=== PATIENT | female | born 1995 | race Caucasian/White ===

== ENCOUNTER → 2016-08-12 | Outpatient (CLI) | payer MEDICAID | LOC: MW.CHOBGYN 14:56 | PROVIDERS: ATTEND Advanced Practice Midwife | DX: Z34.90 Encounter for supervision of normal pregnancy, unspecified, unspecified trimester (principal) | CPT/HCPCS: 36415; 85025 ==

== ENCOUNTER 2016-08-14 17:29 | Outpatient (CLI) | payer MEDICAID ==
--- NOTE | 2016-08-17 13:25 | US ---
EXAM DATE: 08/14/16 PATIENT'S AGE: 21 Patient: MARK BALTAZAR Facility: [facility], [place] Site . Site : 1995 Study: US OB Pelvis [id number]/17/2017 9:00:54 PM Ordering Physician: Kenneth Brown Final Report: HISTORY: Leaking fluid. Comparison: 07/17/2016. Findings: Single living intrauterine fetus in breech position. heart rate 156 beats per minute. KELSEY within normal 14.5 cm. The placenta is posterior. No evidence for placenta previa. The cervix measures 4 cm in length and appears closed. Ultrasound gestational age of 24 weeks 1 day and EDC of 12/03/2016. Appropriate interval growth. This correlates with clinical dating. Impression: Single living intrauterine fetus in breech position with ultrasound gestational age of 24 weeks 1 day and EDC 12/03/2016. This correlates with prior dating. Amniotic fluid volume within normal. Dictated by Josie Perla MD @ Aug 17 2016 8:14AM (Electronic Signature) Report Signed by Proxy and Original Signed Document filed in the Medical Record. MTDD
== END 2016-08-14 21:06 | disposition home or self-care (01) ==
LOC: MW.OBCHECK 17:29 → MW.OB 17:31 → MW.OBCHECK 21:06
PROVIDERS: ATTEND Obstetrics & Gynecology
DX: O42.912 Preterm premature rupture of membranes, unspecified as to length of time between rupture and onset of labor, second trimester (principal); Z3A.23 23 weeks gestation of pregnancy
CPT/HCPCS: 59025; 76805; 76805-26; 81003; 84112

== ENCOUNTER 2016-08-20 14:19 | Emergency (ER) | payer MEDICAID ==
[2016-08-20] MEDS ORDERED: Sodium Chloride 0.9% 1,000 ML IV ONE (14:50)
--- NOTE | 2016-08-20 15:18 | EDM.PDOC ---
ED HPI GENERAL MEDICAL PROBLEM - General Chief Complaint: General Stated Complaint: 25 WEEKS /PASSED OUT TWICE Time Seen by Provider: 08/20/16 14:40 Source of Information: Reports: Patient History Limitations: Reports: No limitations - History of Present Illness INITIAL COMMENTS - FREE TEXT/NARRATIVE: HISTORY AND PHYSICAL: History of present illness: Patient is a 21-year-old female who presents to the emergency department today after very short syncopal episode today. She states this occurred last week and then again today. The episode happened while she was sitting at work after she just and entering. She started feeling really poorly with nausea and lightheadedness. She laid down on the floor and was told that she passed out for a couple of seconds. There is no fall associated with this. She states she laid there for 5-10 minutes and tried to get back but felt extremely nauseated and lightheaded again. This cycle went on several times. She presents today for evaluation. She is 25 weeks . . She has not had any trauma. No fevers no chills. No abdominal pain no vaginal discharge. She denies vaginal bleeding. No pain with urination. Otherwise healthy. Review of systems: As per history of present illness and below otherwise all systems reviewed and negative. Past medical history: As per history of present illness and as reviewed below otherwise noncontributory. Surgical history: As per history of present illness and as reviewed below otherwise noncontributory. Social history: No reported history of drug or alcohol abuse. Family history: As per history of present illness and as reviewed below otherwise noncontributory. Physical exam: General: Comfortable. Non toxic. Vitals reviewed and stable. HEENT: Atraumatic, normocephalic, pupils reactive, moist mucous membranes. Lungs: Clear to auscultation, breath sounds equal bilaterally, chest nontender. Heart: S1S2, regular, negative for clicks, rubs, or JVD. Abdomen: Soft, gravid fundus palpated. No significant tenderness. Pelvis: Stable nontender. Genitourinary: Deferred. Rectal: Deferred. Extremities: Atraumatic, negative for cords or calf pain. Neurovascular unremarkable. Neuro: Awake, alert, oriented. Cranial nerves II through XII unremarkable. Cerebellum unremarkable. Motor and sensory unremarkable throughout. Exam nonfocal. Diagnostics: cbc, cmp, ua, ekg, orthostatic vital signs Therapeutics: IV fluids (patient refused) Impression: Syncope Plan: I spoke with Dr. Cooper about the findings here and he does not feel any additional management needed to occur here. He mentioned to just call the office tomorrow and arrange a followup appointment. The patient says that she knew this was going to happen when she came in but she only came because her employer made her. She feels fine now. We discussed some home management and think he can get it maybe try and prevent her symptoms and she'll return if anything worsens. She is comfortable with this and did not have any additional questions or concerns Definitive disposition and diagnosis as appropriate pending reevaluation and review of above. - Related Data Allergies Allergy/AdvReac Type Severity Reaction Status Date / Time amoxicillin Allergy Hives Verified 08/14/16 17:56 Home Meds: Home Meds Vits #93/Iron Fum/FA [ Formula Tablet] 1 each PO DAILY [History] Social & Family History - Tobacco Use Smoking Status *Q: Never Smoker Second Hand Smoke Exposure: No - Caffeine Use Caffeine Use: Reports: Coffee - Recreational Drug Use Recreational Drug Use: No ED ROS GENERAL - Review of Systems Review Of Systems: ROS reveals no pertinent complaints other than HPI. ED EXAM, GENERAL - Physical Exam Exam: See Below (See history of present illness) Course - Vital Signs Last Recorded V/S: Last Vital Signs Temp 36.3 C 08/20/16 14:32 Pulse 87 08/20/16 14:32 Resp 18 08/20/16 14:32 BP 110/68 08/20/16 14:32 Pulse Ox 99 08/20/16 14:32 Orthostatic Blood Pressure [] 108/76 Orthostatic Blood Pressure [] 103/68 Orthostatic Blood Pressure [] 110/70 - Orders/Labs/Meds Orders: Active Orders 24 hr Category Date Time Status EKG 12 Lead [EKG Documentation Completion] [RC] STAT Care 08/20/16 14:26 Active Orthostatic Vital Signs [RC] ASDIRECTED Care 08/20/16 14:51 Active UA W/MICROSCOPIC [URIN] Stat Lab 08/20/16 16:02 Received Labs: Laboratory Tests 08/20/16 08/20/16 08/20/16 Range/Units 14:38 15:00 15:00 WBC 11.28 H (4.0-11.0) K/uL RBC 3.53 L (4.30-5.90) M/uL Hgb 10.4 L (12.0-16.0) g/dL Hct 31.5 L (36.0-46.0) % MCV 89.2 (80.0-98.0) fL MCH 29.5 (27.0-32.0) pg MCHC 33.0 (31.0-37.0) g/dL RDW Std Deviation 44.5 (28.0-62.0) fl RDW Coeff of Cherie 14 (11.0-15.0) % Plt Count 247 (150-400) K/uL MPV 9.50 (7.40-12.00) fL Neut % (Auto) 81.5 H (48.0-80.0) % Lymph % (Auto) 10.4 L (16.0-40.0) % [place] % (Auto) 6.3 (0.0-15.0) % Eos % (Auto) 1.6 (0.0-7.0) % Baso % (Auto) 0.2 (0.0-1.5) % Neut # (Auto) 9.2 H (1.4-5.7) K/uL Lymph # (Auto) 1.2 (0.6-2.4) K/uL [place] # (Auto) 0.7 (0.0-0.8) K/uL Eos # (Auto) 0.2 (0.0-0.7) K/uL Baso # (Auto) 0.0 (0.0-0.1) K/uL Nucleated RBC % 0.0 /100WBC Nucleated RBCs # 0 K/uL Sodium 136 (136-146) mmol/L Potassium 4.0 (3.5-5.1) mmol/L Chloride 107 (98-110) mmol/L Carbon Dioxide 22 (21-31) mmol/L BUN 6 (6.0-23.0) mg/dL Creatinine 0.7 (0.6-1.5) mg/dL Est Cr Clr Drug Dosing TNP Estimated GFR (MDRD) > 60.0 ml/min Glucose 119 H (60-110) mg/dL POC Glucose 113 H (60-110) mg/dL Calcium 8.8 (8.8-10.8) mg/dL Total Bilirubin 0.3 (0.1-1.5) mg/dL AST 13 (5-40) IU/L ALT 10 (8-54) IU/L Alkaline Phosphatase 63 (40-150) Total Protein 6.3 (6.0-8.0) g/dL Albumin 3.3 L (3.5-5.0) g/dL Globulin 3.0 (2.0-3.5) g/dL Albumin/Globulin Ratio 1.1 L (1.3-2.8) Meds: Medications Discontinued Medications Generic Name Dose Route Start Last Admin Trade Name Freq PRN Reason Stop Dose Admin Sodium Chloride 1,000 mls @ 999 mls/hr 08/20/16 14:50 Normal Saline IV 08/20/16 15:50 STAT ONE Departure - Departure Time of Disposition: 16:26 Disposition: Home, Self-Care 01 Condition: good Clinical Impression: Second trimester Syncope Qualifiers: Syncope type: unspecified Qualified Code(s): R55 - Syncope and collapse Referrals: PCP,None [Primary Care Provider] - Forms: ED Department Discharge Additional Instructions: The following information is given to patients seen in the emergency department who are being discharged to home. This information is to outline your options for follow-up care. We provide all patients seen in our emergency department with a follow-up referral. The need for follow-up, as well as the timing and circumstances, are variable depending upon the specifics of your emergency department visit. If you don't have a primary care physician on staff, we will provide you with a referral. We always advise you to contact your personal physician following an emergency department visit to inform them of the circumstance of the visit and for follow-up with them and/or the need for any referrals to a consulting specialist. The emergency department will also refer you to a specialist when appropriate. This referral assures that you have the opportunity for follow-up care with a specialist. All of these measure are taken in an effort to provide you with optimal care, which includes your follow-up. Under all circumstances we always encourage you to contact your private physician who remains a resource for coordinating your care. When calling for follow-up care, please make the office aware that this follow-up is from your recent emergency room visit. If for any reason you are refused follow-up, please contact the [facility] Emergency Department at and asked to speak to the emergency department charge nurse. [facility] - [facility] [address] [place] [id number] - My Orders Last 24 Hours: My Active Orders 08/20/16 14:51 Orthostatic Vital Signs [RC] ASDIRECTED 08/20/16 16:02 UA W/MICROSCOPIC [URIN] Stat - Assessment/Plan Last 24 Hours: My Active Orders 08/20/16 14:51 Orthostatic Vital Signs [RC] ASDIRECTED 08/20/16 16:02 UA W/MICROSCOPIC [URIN] Stat
[2016-08-20 15:29] LABS: CHLORIDE,CL 107 mmol/L (98-110); SODIUM,NA 136 mmol/L (136-146)
[2016-08-20 16:50] VITALS: BP 108/78
== END 2016-08-20 16:49 | disposition home or self-care (01) ==
LOC: MW.ED 14:19
DX: O99.89 Other specified diseases and conditions complicating pregnancy, childbirth and the puerperium (principal); R55 Syncope and collapse; Z3A.25 25 weeks gestation of pregnancy; Z88.1 Allergy status to other antibiotic agents
CPT/HCPCS: 36415; 80053; 81001; 82962; 85025; 93005; 99284-25; 99285

== ENCOUNTER 2016-11-24 18:23 | Inpatient (IN) | payer OTHER, MEDICAID ==
[2016-11-24] MEDS ORDERED: Carboprost Tromethamine 250 MCG/1 ML Amp IM PRN (23:24)
[2016-11-24] MEDS ORDERED: Sodium Chloride 0.9% 2.5 ML Syringe FLUSH PRN (23:24)
[2016-11-24] MEDS ORDERED: Lidocaine 1% 50 ML MDV INJECT PRN (23:24)
[2016-11-24] MEDS ORDERED: Nalbuphine 10 MG/1 ML Vial IVPUSH PRN (23:24)
[2016-11-24] MEDS ORDERED: Water For Irrigation,Sterile 1,000 ML Container IRR PRN (23:24)
[2016-11-24] MEDS ORDERED: Terbutaline 1 MG/ML SDV SUBCUT PRN (23:24)
[2016-11-24] MEDS ORDERED: Methylergonovine 0.2 MG/1 ML Amp IM PRN (23:24)
[2016-11-24] MEDS ORDERED: Misoprostol 200 MCG Tab PO PRN (23:24)
[2016-11-24] MEDS ORDERED: Sodium Chloride 0.9% 10 ML Syringe FLUSH PRN (23:24)
[2016-11-24] MEDS ORDERED: Misoprostol 25 MCG (1/4 of 100 MCG) Tab PO SCH (23:30)
[2016-11-24] MEDS ORDERED: Oxytocin/Lactated Ringers 30 UNIT/500 ML BAG IV SCH (23:30)
[2016-11-24] MEDS ORDERED: Misoprostol 25 MCG (1/4 of 100 MCG) Tab VAG SCH (23:30)
[2016-11-25] MEDS: Misoprostol 25 MCG (1/4 of 100 MCG) Tab VAG PRN ×2 (04:28→08:40)
[2016-11-25] MEDS: Misoprostol 25 MCG (1/4 of 100 MCG) Tab PO PRN ×2 (04:28→08:46)
--- NOTE | 2016-11-25 09:10 | PCM.LDHP ---
L&D History of Present Illness - General Date of Service: 11/25/16 Admit Problem/Dx: Patient Status Order with Admit Dx/Problem 11/24/16 23:24 Patient Status [ADT] Routine Admission Diagnosis/Problem Admission Diagnosis/Problem Source of Information: Patient History Limitations: Reports: No Limitations - History of Present Illness Improves with: Reports: None Worsens with: Reports: None Associated Symptoms: Reports: N - Related Data Allergies/Adverse Reactions: Allergies Allergy/AdvReac Type Severity Reaction Status Date / Time amoxicillin Allergy Hives Verified 08/14/16 17:56 Home Medications: Home Meds Vits #93/Iron Fum/FA [ Formula Tablet] 1 each PO DAILY [History] Past Medical History [employer] History: Reports: Social & Family History - Family History Family Medical History: Noncontributory - Tobacco Use Smoking Status *Q: Never Smoker Second Hand Smoke Exposure: No - Caffeine Use Caffeine Use: Reports: Coffee - Recreational Drug Use Recreational Drug Use: No H&P Review of Systems - Review of Systems: Review Of Systems: See Below General: Reports: No Symptoms HEENT: Reports: No Symptoms Pulmonary: Reports: No Symptoms Cardiovascular: Reports: No Symptoms Gastrointestinal: Reports: No Symptoms Genitourinary: Reports: No Symptoms Musculoskeletal: Reports: No Symptoms Skin: Reports: No Symptoms Psychiatric: Reports: No Symptoms Neurological: Reports: No Symptoms Hematologic/Lymphatic: Reports: No Symptoms Immunologic: Reports: No Symptoms L&D Exam - Exam Exam: See Below - Vital Signs Weight: 68.946 kg - OB Specific Fundal Height In cm: 37 Contraction Intensity: Mild Movement: Active Heart Tones: Present - Javier Score Javier Score Cervix Position: Midposition Javier Score Consistency: Medium Javier Score Effacement: 51-70% Javier Score Dilation: Closed Javier Score Infant's Station: -2 Javier Score Total: 5 - Patient Data Lab Results Last 24 hrs: Laboratory Results - last 24 hr 11/24/16 11/24/16 Range/Units 23:50 23:50 WBC 8.52 (4.0-11.0) K/uL RBC 4.08 L (4.30-5.90) M/uL Hgb 11.0 L (12.0-16.0) g/dL Hct 34.2 L (36.0-46.0) % MCV 83.8 (80.0-98.0) fL MCH 27.0 (27.0-32.0) pg MCHC 32.2 (31.0-37.0) g/dL RDW Std Deviation 40.1 (28.0-62.0) fl RDW Coeff of Cherie 13 (11.0-15.0) % Plt Count 278 (150-400) K/uL MPV 9.90 (7.40-12.00) fL Nucleated RBC % 0.0 /100WBC Nucleated RBCs # 0 K/uL Blood Type O POSITIVE Antibody Screen NEGATIVE Result Diagrams: 11/24/16 23:50 Problem List Initiated/Reviewed/Updated: Yes Orders Last 24hrs: Active Orders 24 hr Category Date Time Status Patient Status [ADT] Routine ADT 11/24/16 23:24 Active Bedrest Bathroom Privileges [RC] ASDIRECTED Care 11/24/16 23:24 Active Communication Order [RC] ASDIRECTED Care 11/24/16 23:24 Active Communication Order [RC] ASDIRECTED Care 11/24/16 23:24 Active Communication Order [RC] ASDIRECTED Care 11/24/16 23:24 Active Heart Tones [RC] CONTINUOUS Care 11/24/16 23:24 Active Non Stress Test [RC] PER UNIT ROUTINE Care 11/24/16 23:24 Active May Shower [RC] ASDIRECTED Care 11/24/16 23:24 Active Notify Provider [RC] PRN Care 11/24/16 23:24 Active Notify Provider [RC] PRN Care 11/24/16 23:24 Active Notify Provider [RC] STAT Care 11/24/16 23:24 Active Oxygen Therapy [RC] ASDIRECTED Care 11/24/16 23:24 Active Up ad Jenna [RC] ASDIRECTED Care 11/24/16 23:24 Active Vaginal Exam [RC] PRN Care 11/24/16 23:24 Active Vaginal Exam [RC] PRN Care 11/24/16 23:24 Active Vital Signs [RC] PER UNIT ROUTINE Care 11/24/16 23:24 Active Vital Signs [RC] PER UNIT ROUTINE Care 11/24/16 23:24 Active Carboprost Tromethamine [Hemabate DS] Med 11/24/16 23:24 Active 250 mcg IM ASDIRECTED PRN Lactated Ringers [Ringers, Lactated] 1,000 ml Med 11/24/16 23:30 Active IV ASDIRECTED Lidocaine 1% [Xylocaine 1%] Med 11/24/16 23:24 Active 50 ml INJECT .ONCE PRN Methylergonovine [Methergine] Med 11/24/16 23:24 Active 0.2 mg IM ASDIRECTED PRN Misoprostol [Cytotec] Med 11/24/16 23:24 Active 200 mcg PO .ONCE PRN Misoprostol [Cytotec] Med 11/24/16 23:30 Active 25 mcg PO .ONCE Misoprostol [Cytotec] [facility] 11/24/16 23:24 Active 25 mcg PO Q4H PRN Misoprostol [Cytotec] [facility] 11/24/16 23:30 Active 25 mcg VAG .ONCE Misoprostol [Cytotec] Med 11/24/16 23:24 Active 25 mcg VAG Q4H PRN Oxytocin/Lactated Ringers [Pitocin in LR 30 Units/500 Med 11/24/16 23:30 Active ML] 30 unit in 500 ml IV TITRATE Sodium Chloride 0.9% [Saline Flush] Med 11/24/16 23:24 Active 10 ml FLUSH ASDIRECTED PRN Sodium Chloride 0.9% [Saline Flush] [facility] 11/24/16 23:24 Active 2.5 ml FLUSH ASDIRECTED PRN Terbutaline [Brethine] Med 11/24/16 23:24 Active 0.25 mg SUBCUT ASDIRECTED PRN Water For Irrigation,Sterile [Sterile Water for Med 11/24/16 23:24 Active Irrigation] 1,000 ml IRR ASDIRECTED PRN Scalp Electrode [WOMSER] Per Unit Routine Oth 11/24/16 23:24 Ordered Peripheral IV Insertion Adult [OM.PC] Routine Oth 11/24/16 23:24 Ordered Resuscitation Status Routine Resus Stat 11/24/16 23:24 Ordered Medication Orders Carboprost Tromethamine (Hemabate Ds) 250 mcg IM ASDIRECTED PRN PRN Reason: Post Hemorrhage Lactated Ringer's (Ringers, Lactated) 1,000 mls @ 150 mls/hr IV ASDIRECTED JASSI Oxytocin/Lactated Ringer's (Pitocin In Lr 30 Units/500 Ml) 30 unit in 500 mls @ 2 mls/hr IV TITRATE JASSI; 2 MUNITS/MIN PRN Reason: Protocol Stop: 11/25/16 23:29 Lidocaine HCl (Xylocaine 1%) 50 ml INJECT .ONCE PRN PRN Reason: Laceration repair Methylergonovine Maleate (Methergine) 0.2 mg IM ASDIRECTED PRN PRN Reason: Post Hemorrhage Misoprostol (Cytotec) 200 mcg PO .ONCE PRN PRN Reason: Post Hemorrhage Misoprostol (Cytotec) 25 mcg VAG .ONCE JASSI Last Admin: 11/25/16 00:01 Dose: 25 mcg Misoprostol (Cytotec) 25 mcg VAG Q4H PRN PRN Reason: Cervical Ripening Stop: 11/26/16 03:25 Last Admin: 11/25/16 08:40 Dose: 25 mcg Admin: 11/25/16 04:28 Dose: 25 mcg Misoprostol (Cytotec) 25 mcg PO .ONCE JASSI Last Admin: 11/25/16 00:01 Dose: 25 mcg Misoprostol (Cytotec) 25 mcg PO Q4H PRN PRN Reason: Cervical Ripening Stop: 11/26/16 03:25 Last Admin: 11/25/16 08:46 Dose: 25 mcg Admin: 11/25/16 04:28 Dose: 25 mcg Sodium Chloride (Saline Flush) 10 ml FLUSH ASDIRECTED PRN PRN Reason: Keep Vein Open Sodium Chloride (Saline Flush) 2.5 ml FLUSH ASDIRECTED PRN PRN Reason: Keep Vein Open Sterile Water (Sterile Water For Irrigation) 1,000 ml IRR ASDIRECTED PRN PRN Reason: delivery Terbutaline Sulfate (Brethine) 0.25 mg SUBCUT ASDIRECTED PRN PRN Reason: Tacysystole Assessment/Plan Comment:: Term admited for social indction with Cytotec and pitocine.
[2016-11-25] MEDS: Nalbuphine 10 MG/1 ML Vial IVPUSH PRN ×2 (12:37→14:49)
[2016-11-25] MEDS: Lactated Ringers 1,000 ML IV SCH ×2 (12:41→14:56)
[2016-11-25] MEDS ORDERED: fentaNYL 100 MCG/2 ML SDV ONE (16:17)
[2016-11-25] MEDS ORDERED: Ropivacaine 0.2% 2 MG/ML 20 ML SDV ONE (16:18)
--- NOTE | 2016-11-25 18:48 | PCM.DEL ---
L & D Note - General Info Date of Service: 11/25/16 Mother's Due Date: 12/01/16 - Delivery Note Cervical Ripening Method: Misoprostil Delivery Outcome: Livebirth Delivery Method: Spontaneous Vaginal Delivery Infant Delivery Mode: Spontaneous Presentation: Vertex Nuchal Cord: Present Anesthesia Type: None Amniotic Fluid Description: Clear Episiotomy Type: None Laceration: none Placenta: intact, spontaneous Estimated Blood Loss: 100 Resuscitation Needed: No [place]: Stimulated Score 1 min: 8 Score 5 min: 9 Second Stage Interventions: Reports: Pushing Effectively, Pushing, McRobert's Position Delivery Comments (Free Text/Narrative):: of viable female over intact perineum. Head delivered and nuchel x1 loose reduced over head, shoulders and body followed easily. Infant to mother abd with RN at for evaluation. Delayed cord clamping. Pitocin to IVF. Cord clamped x2 and cut by FOB. Cord blood collected. Placenta delivered grossly intact. Inspection noted intact perineum. EBL 100cc, APGARS 8/9, Wt: 6lb 15oz. Mother and baby left in stable condition for recovery. Induction Criteria - Javier Score Javier Score Dilation: 1-2 cm Javier Score Effacement: 60-70% Javier Score 's Station: -2 Javier Score Consistency: Soft Javier Score Cervix Position: Posterior Javier Score Total: 6 Javier Score Presenting Part: Reports: Cephalic - Induction Gestational Age >/= 39 wks: Yes Estimated pelvis: Reports: Adequate Reassuring monitoring strip: Yes Absence of tachy systole: Yes - General Info Date of Service: 11/25/16 Admission Dx/Problem (Free Text): Patient Status Order with Admit Dx/Problem 11/24/16 23:24 Patient Status [ADT] Routine Admission Diagnosis/Problem Admission Diagnosis/Problem Functional Status: Reports: pain controlled, tolerating diet, urinating - Review of Systems General: Reports: No Symptoms HEENT: Reports: no symptoms Pulmonary: Reports: no symptoms Cardiovascular: Reports: No Symptoms Gastrointestinal: Reports: No symptoms Genitourinary: Reports: no symptoms Musculoskeletal: Reports: no symptoms Skin: Reports: no symptoms Neurological: Reports: No Symptoms Psychiatric: Reports: no symptoms - Patient Data Weight - most recent: 68.946 kg Lab Results last 24 hrs: Laboratory Results - last 24 hr 11/24/16 11/24/16 Range/Units 23:50 23:50 WBC 8.52 (4.0-11.0) K/uL RBC 4.08 L (4.30-5.90) M/uL Hgb 11.0 L (12.0-16.0) g/dL Hct 34.2 L (36.0-46.0) % MCV 83.8 (80.0-98.0) fL MCH 27.0 (27.0-32.0) pg MCHC 32.2 (31.0-37.0) g/dL RDW Std Deviation 40.1 (28.0-62.0) fl RDW Coeff of Cherie 13 (11.0-15.0) % Plt Count 278 (150-400) K/uL MPV 9.90 (7.40-12.00) fL Nucleated RBC % 0.0 /100WBC Nucleated RBCs # 0 K/uL Blood Type O POSITIVE Antibody Screen NEGATIVE Med Orders - Current: Current Medications Carboprost Tromethamine (Hemabate Ds) 250 mcg IM ASDIRECTED PRN PRN Reason: Post Hemorrhage Lactated Ringer's (Ringers, Lactated) 1,000 mls @ 150 mls/hr IV ASDIRECTED JASSI Last Admin: 11/25/16 14:56 Dose: 150 mls/hr Oxytocin/Lactated Ringer's (Pitocin In Lr 30 Units/500 Ml) 30 unit in 500 mls @ 2 mls/hr IV TITRATE JASSI; 2 MUNITS/MIN PRN Reason: Protocol Stop: 11/25/16 23:29 Last Admin: 11/25/16 18:26 Dose: 500 munits/min, 500 mls/hr Lidocaine HCl (Xylocaine 1%) 50 ml INJECT .ONCE PRN PRN Reason: Laceration repair Methylergonovine Maleate (Methergine) 0.2 mg IM ASDIRECTED PRN PRN Reason: Post Hemorrhage Misoprostol (Cytotec) 200 mcg PO .ONCE PRN PRN Reason: Post Hemorrhage Misoprostol (Cytotec) 25 mcg VAG .ONCE JASSI Last Admin: 11/25/16 00:01 Dose: 25 mcg Misoprostol (Cytotec) 25 mcg VAG Q4H PRN PRN Reason: Cervical Ripening Stop: 11/26/16 03:25 Last Admin: 11/25/16 08:40 Dose: 25 mcg Misoprostol (Cytotec) 25 mcg PO .ONCE JASSI Last Admin: 11/25/16 00:01 Dose: 25 mcg Misoprostol (Cytotec) 25 mcg PO Q4H PRN PRN Reason: Cervical Ripening Stop: 11/26/16 03:25 Last Admin: 11/25/16 08:46 Dose: 25 mcg Nalbuphine HCl (Nubain) 10 mg IVPUSH Q1H PRN PRN Reason: Pain Last Admin: 11/25/16 14:49 Dose: 10 mg Sodium Chloride (Saline Flush) 10 ml FLUSH ASDIRECTED PRN PRN Reason: Keep Vein Open Sodium Chloride (Saline Flush) 2.5 ml FLUSH ASDIRECTED PRN PRN Reason: Keep Vein Open Sterile Water (Sterile Water For Irrigation) 1,000 ml IRR ASDIRECTED PRN PRN Reason: delivery Terbutaline Sulfate (Brethine) 0.25 mg SUBCUT ASDIRECTED PRN PRN Reason: Tacysystole Discontinued Medications Fentanyl (Sublimaze) Confirm Administered Dose 100 mcg .ROUTE .STK-MED ONE Stop: 11/25/16 16:18 Ropivacaine/Fentanyl/NS (Fentanyl 2 Mcg-Ropiv 0.2%-Ns) Confirm Administered Dose 100 mls @ as directed .ROUTE .STK-MED ONE Stop: 11/25/16 16:18 Nalbuphine HCl (Nubain) 10 mg IVPUSH Q1H PRN PRN Reason: Pain (severe 7-10) Stop: 11/25/16 01:25 Ropivacaine (Naropin 0.2%) Confirm Administered Dose 20 ml .ROUTE .STK-MED ONE Stop: 11/25/16 16:19 - Exam General: alert, oriented, cooperative, no acute distress Lungs: Normal respiratory effort Abdomen: soft, no tenderness, no distension (Female) Exam: Normal External Exam, Normal Bimanual Exam, Vaginal Bleeding Back Exam: Full Range of Motion Extremities: no edema Skin: warm, dry, intact Wound/Incisions: healing well Neurological: no new focal deficit, normal speech, normal tone Psy/Mental Status: alert, normal affect, normal mood - Problem List & Annotations (1) Supervision of normal IUP (intrauterine ) in primigravida SNOMED Code(s): 75647476, 654281189, 134047771, 521467722 Code(s): Z34.00 - ENCNTR FOR SUPRVSN OF NORMAL FIRST , UNSP TRIMESTER Status: Acute Priority: High Current Visit: Yes Qualifiers: Trimester: third trimester Qualified Code(s): Z34.03 - Encounter for supervision of normal first , third trimester (2) (normal spontaneous vaginal delivery) SNOMED Code(s): 57924358 Code(s): O80 - ENCOUNTER FOR FULL-TERM UNCOMPLICATED DELIVERY Status: Acute Priority: Medium Current Visit: Yes - Problem List Review Problem List Initiated/Reviewed/Updated: Yes - My Orders Last 24 Hours: My Active Orders 11/24/16 23:24 Patient Status [ADT] Routine Bedrest Bathroom Privileges [RC] ASDIRECTED Communication Order [RC] ASDIRECTED Communication Order [RC] ASDIRECTED Communication Order [RC] ASDIRECTED Heart Tones [RC] CONTINUOUS Non Stress Test [RC] PER UNIT ROUTINE May Shower [RC] ASDIRECTED Notify Provider [RC] PRN Notify Provider [RC] PRN Notify Provider [RC] STAT Oxygen Therapy [RC] ASDIRECTED Up ad Jenna [RC] ASDIRECTED Vaginal Exam [RC] PRN Vaginal Exam [RC] PRN Vital Signs [RC] PER UNIT ROUTINE Vital Signs [RC] PER UNIT ROUTINE Carboprost Tromethamine [Hemabate DS] 250 mcg IM ASDIRECTED PRN Lidocaine 1% [Xylocaine 1%] 50 ml INJECT .ONCE PRN Methylergonovine [Methergine] 0.2 mg IM ASDIRECTED PRN Misoprostol [Cytotec] 200 mcg PO .ONCE PRN Misoprostol [Cytotec] 25 mcg PO Q4H PRN Misoprostol [Cytotec] 25 mcg VAG Q4H PRN Sodium Chloride 0.9% [Saline Flush] 10 ml FLUSH ASDIRECTED PRN Sodium Chloride 0.9% [Saline Flush] 2.5 ml FLUSH ASDIRECTED PRN Terbutaline [Brethine] 0.25 mg SUBCUT ASDIRECTED PRN Water For Irrigation,Sterile [Sterile Water for Irrigation] 1,000 ml IRR ASDIRECTED PRN Scalp Electrode [WOMSER] Per Unit Routine Peripheral IV Insertion Adult [OM.PC] Routine Resuscitation Status Routine 11/24/16 23:30 Lactated Ringers [Ringers, Lactated] 1,000 ml IV ASDIRECTED Misoprostol [Cytotec] 25 mcg PO .ONCE Misoprostol [Cytotec] 25 mcg VAG .ONCE Oxytocin/Lactated Ringers [Pitocin in LR 30 Units/500 ML] 30 unit in 500 ml IV TITRATE 11/25/16 12:21 Nalbuphine [Nubain] 10 mg IVPUSH Q1H PRN - Assessment Assessment:: Delivery A: female. Intact perineum, EBL 100cc, APGARS 8/9. Stable. - Plan Plan:: Term admited for social indction with Cytotec and pitocine. Delivery: P: routine pp plan of care.
[2016-11-25] MEDS ORDERED: Witch Hazel Medicated Pads 40/Jar TOP PRN (18:54)
[2016-11-25] MEDS ORDERED: Benzocaine/Menthol 20%-0.5% Spray 78 GM Cannister TOP PRN (18:54)
[2016-11-25] MEDS ORDERED: Lanolin 100% Cream 7 GM Tube TOP PRN (18:54)
[2016-11-25] MEDS ORDERED: Acetaminophen 500 MG Tab PO PRN ×2 (18:54)
[2016-11-25] MEDS ORDERED: oxyCODONE 5 MG Tab PO PRN (18:54)
[2016-11-25] MEDS ORDERED: Docusate Sodium 100 MG Cap PO PRN (18:54)
[2016-11-25] MEDS ORDERED: Ibuprofen 800 MG Tab PO PRN (18:54)
[2016-11-25] MEDS ORDERED: Bisacodyl 10 MG Supp RECTAL PRN (18:54)
[2016-11-25] MEDS ORDERED: Ibuprofen 400 MG Tab PO PRN (18:54)
--- NOTE | 2016-11-26 13:05 | PCM.DCSUM1 ---
Discharge Summary - Hospital Course Free Text/Narrative:: Discharge home with infant. Follow up in 6 weeks or sooner if needed. - Discharge Data Discharge Date: 11/26/16 Discharge Disposition: Home, Self-Care 01 Condition: Good - Discharge Diagnosis/Problem(s) (1) Supervision of normal IUP (intrauterine ) in primigravida SNOMED Code(s): 00897981, [id number], 759968300, 361727025 ICD Code: Z34.00 - ENCNTR FOR SUPRVSN OF NORMAL FIRST , UNSP TRIMESTER Status: Acute Priority: High Current Visit: Yes Qualifiers: Trimester: third trimester Qualified Code(s): Z34.03 - Encounter for supervision of normal first , third trimester (2) (normal spontaneous vaginal delivery) SNOMED Code(s): 84987993 ICD Code: O80 - ENCOUNTER FOR FULL-TERM UNCOMPLICATED DELIVERY Status: Acute Priority: Medium Current Visit: Yes - Patient Instructions Diet: Usual Diet as Tolerated Activity: As Tolerated, Rest and Relax Today Driving: May Drive Today Showering/Bathing: May Shower Notify Provider of: Fever, Increased Pain, Nausea and/or Vomiting Other/Special Instructions: Discharge home with . Follow up in 6 weeks or sooner if needed. - Discharge Plan Home Medications: Home Meds Vits #93/Iron Fum/FA [ Formula Tablet] 1 each PO DAILY [History] Referrals: [facility] [Outside] Annemarie Conn CNM [Mid-] - 12/30/16 9:30 am - General Info Date of Service: 11/26/16 Admission Dx/Problem (Free Text: Patient Status Order with Admit Dx/Problem 11/24/16 23:24 Patient Status [ADT] Routine Admission Diagnosis/Problem Admission Diagnosis/Problem Functional Status: Reports: pain controlled, tolerating diet, ambulating, urinating - Review of Systems General: Reports: No Symptoms HEENT: Reports: no symptoms Pulmonary: Reports: no symptoms Cardiovascular: Reports: No Symptoms Gastrointestinal: Reports: No symptoms Genitourinary: Reports: no symptoms Musculoskeletal: Reports: no symptoms Skin: Reports: no symptoms Neurological: Reports: No Symptoms Psychiatric: Reports: no symptoms - Patient Data Vitals - Most Recent: Last Vital Signs Temp 36.9 C 11/26/16 08:45 Pulse 59 L 11/26/16 08:45 Resp 16 11/26/16 08:45 BP 113/54 L 11/26/16 08:45 Pulse Ox 98 11/26/16 08:45 Weight - Most Recent: 68.946 kg Med Orders - Current: Current Medications Acetaminophen (Tylenol Extra Strength) 500 mg PO Q4H PRN PRN Reason: Pain Acetaminophen (Tylenol Extra Strength) 1,000 mg PO Q4H PRN PRN Reason: Pain Benzocaine/Menthol (Dermoplast Pain Relief 20%-0.5% Magnolia) 78 gm TOP ASDIRECTED PRN PRN Reason: Perineal Comfort Measure Bisacodyl (Dulcolax) 10 mg RECTAL .ONCE PRN PRN Reason: Constipation Docusate Sodium (Colace) 100 mg PO BID PRN PRN Reason: Constipation Last Admin: 11/26/16 05:11 Dose: 100 mg Emollient Ointment (Lansinoh Hpa) 0 gm TOP ASDIRECTED PRN PRN Reason: Sore Nipples Ibuprofen (Motrin) 400 mg PO Q4H PRN PRN Reason: Pain Ibuprofen (Motrin) 800 mg PO Q6H PRN PRN Reason: Pain Oxycodone HCl (Oxycodone) 5 mg PO Q2H PRN PRN Reason: Pain Witch Melonie (Tucks) 1 pad TOP ASDIRECTED PRN PRN Reason: comfort care Last Admin: 11/26/16 05:11 Dose: 1 pad Discontinued Medications Carboprost Tromethamine (Hemabate Ds) 250 mcg IM ASDIRECTED PRN PRN Reason: Post Hemorrhage Fentanyl (Sublimaze) Confirm Administered Dose 100 mcg .ROUTE .[facility] ONE Stop: 11/25/16 16:18 Lactated Ringer's (Ringers, Lactated) 1,000 mls @ 150 mls/hr IV ASDIRECTED JASSI Last Admin: 11/25/16 14:56 Dose: 150 mls/hr Oxytocin/Lactated Ringer's (Pitocin In Lr 30 Units/500 Ml) 30 unit in 500 mls @ 2 mls/hr IV TITRATE JASSI; 2 MUNITS/MIN PRN Reason: Protocol Stop: 11/25/16 23:29 Last Admin: 11/25/16 18:26 Dose: 500 munits/min, 500 mls/hr Ropivacaine/Fentanyl/NS (Fentanyl 2 Mcg-Ropiv 0.2%-Ns) Confirm Administered Dose 100 mls @ as directed .ROUTE .[employer] ONE Stop: 11/25/16 16:18 Lidocaine HCl (Xylocaine 1%) 50 ml INJECT .ONCE PRN PRN Reason: Laceration repair Methylergonovine Maleate (Methergine) 0.2 mg IM ASDIRECTED PRN PRN Reason: Post Hemorrhage Misoprostol (Cytotec) 200 mcg PO .ONCE PRN PRN Reason: Post Hemorrhage Misoprostol (Cytotec) 25 mcg VAG .ONCE JASSI Last Admin: 11/25/16 00:01 Dose: 25 mcg Misoprostol (Cytotec) 25 mcg VAG Q4H PRN PRN Reason: Cervical Ripening Stop: 11/26/16 03:25 Last Admin: 11/25/16 08:40 Dose: 25 mcg Misoprostol (Cytotec) 25 mcg PO .ONCE JASSI Last Admin: 11/25/16 00:01 Dose: 25 mcg Misoprostol (Cytotec) 25 mcg PO Q4H PRN PRN Reason: Cervical Ripening Stop: 11/26/16 03:25 Last Admin: 11/25/16 08:46 Dose: 25 mcg Nalbuphine HCl (Nubain) 10 mg IVPUSH Q1H PRN PRN Reason: Pain (severe 7-10) Stop: 11/25/16 01:25 Nalbuphine HCl (Nubain) 10 mg IVPUSH Q1H PRN PRN Reason: Pain Last Admin: 11/25/16 14:49 Dose: 10 mg Ropivacaine (Naropin 0.2%) Confirm Administered Dose 20 ml .ROUTE .[employer] ONE Stop: 11/25/16 16:19 Sodium Chloride (Saline Flush) 10 ml FLUSH ASDIRECTED PRN PRN Reason: Keep Vein Open Sodium Chloride (Saline Flush) 2.5 ml FLUSH ASDIRECTED PRN PRN Reason: Keep Vein Open Sterile Water (Sterile Water For Irrigation) 1,000 ml IRR ASDIRECTED PRN PRN Reason: delivery Terbutaline Sulfate (Brethine) 0.25 mg SUBCUT ASDIRECTED PRN PRN Reason: Tacysystole - Exam General: Reports: alert, oriented, cooperative, no acute distress Lungs: Reports: Normal respiratory effort Abdomen: Reports: soft, no tenderness, no distension (Female) Exam: Vaginal Bleeding Rectal (Female) Exam: Deferred Back Exam: Reports: Full Range of Motion Extremities: Reports: no edema, no tenderness/swelling, no calf tenderness Skin: Reports: warm, dry, intact Wound/Incisions: Reports: healing well Neurological: Reports: no new focal deficit, normal speech, normal tone Psy/Mental Status: Reports: alert, normal affect, normal mood *Q Meaningful Use (DIS) - VTE *Q VTE Criteria *Q: - Stroke *Q Stroke Criteria *Q: - AMI *Q AMI Criteria *Q:
[2016-11-26 20:04] VITALS: BP 112/66
== END 2016-11-26 21:30 | disposition home or self-care (01) | DRG 775 ==
LOC: MW.OB 18:23 → OBSVTOIN 11-25 18:23 → MW.OB 11-25 23:00
PROVIDERS: ADMIT Obstetrics & Gynecology; ATTEND Obstetrics & Gynecology
PROC: 10E0XZZ Delivery of Products of Conception, External Approach (ICD-10-PCS; principal; 2016-11-25)
PROC: 3E033VJ Introduction of Other Hormone into Peripheral Vein, Percutaneous Approach (ICD-10-PCS; 2016-11-25)
DX: O80 Encounter for full-term uncomplicated delivery (principal); Z3A.39 39 weeks gestation of pregnancy; Z37.0 Single live birth
CPT/HCPCS: 59025; 85027; 86850; 86900; 86901; A9270-GY; J2300; J7120

== ENCOUNTER 2017-10-25 09:35 | Emergency (ER) | payer OTHER ==
[2017-10-25 09:52] VITALS: BP 101/63
--- NOTE | 2017-10-25 10:00 | EDM.PDOC ---
ED HPI GENERAL MEDICAL PROBLEM - General Chief Complaint: Eye Problems Stated Complaint: PINK EYE Time Seen by Provider: 10/25/17 09:51 - History of Present Illness INITIAL COMMENTS - FREE TEXT/NARRATIVE: HISTORY AND PHYSICAL: History of present illness: The patient is a 22-year-old female with no stated complaints that presents with a one-day history of left eye redness and matting with drainage. She says that her right eye is starting to feel itchy but it is not red or having any drainage. She is here with her child who has had symptoms similar to this for the last 3-4 days and she is concerned that she also got an eye infection. She does not wear contacts and has no blurred vision. She has no systemic complaints. Review of systems: As per history of present illness and below otherwise all systems reviewed and negative. Past medical history: As per history of present illness and as reviewed below otherwise noncontributory. Surgical history: As per history of present illness and as reviewed below otherwise noncontributory. Social history: No reported history of drug or alcohol abuse. Family history: As per history of present illness and as reviewed below otherwise noncontributory. Physical exam: HEENT: Atraumatic, normocephalic, pupils reactive, EOMs are intact, there is no periorbital swelling, the left sclera is injected as is the conjunctiva and there is some slight discharge seen on the eyelashes but no swelling of the eyelid margin, the right eye has very minimal injection, negative for conjunctival pallor or scleral icterus, mucous membranes moist, throat clear, neck supple, nontender, trachea midline. Lungs: Clear to auscultation, breath sounds equal bilaterally, chest nontender. Heart: S1S2, regular rate and rhythm no overt murmurs Abdomen: Soft, nondistended, nontender. NABS Pelvis: Deferred Genitourinary: Deferred. Rectal: Deferred. Extremities: Atraumatic, negative for cords or calf pain. Neurovascular unremarkable. Neuro: Awake, alert, oriented. Cranial nerves II through XII unremarkable. Cerebellum unremarkable. Motor and sensory unremarkable throughout. Exam nonfocal. Diagnostics: [] Therapeutics: [] Impression: Left eye conjunctivitis Definitive disposition and diagnosis as appropriate pending reevaluation and review of above. - Related Data Allergies Allergy/AdvReac Type Severity Reaction Status Date / Time amoxicillin Allergy Hives Verified 10/25/17 09:50 Home Meds: Home Meds . 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 ED EXAM GENERAL W FULL EYE - Physical Exam Exam: See Below (See dictation) Course - Vital Signs Last Recorded V/S: Last Vital Signs Temp 35.9 C 10/25/17 09:50 Pulse 88 10/25/17 09:50 Resp 18 10/25/17 09:50 BP 101/63 10/25/17 09:50 Pulse Ox 96 10/25/17 09:50 Departure - Departure Time of Disposition: 09:59 Disposition: Home, Self-Care 01 Condition: Good Clinical Impression: Conjunctivitis Qualifiers: Conjunctivitis type: acute Acute conjunctivitis type: bacterial Laterality: left Qualified Code(s): H10.32 - Unspecified acute conjunctivitis, left eye - Discharge Information Referrals: PCP,None [Primary Care Provider] - Additional Instructions: The following information is given to patients seen in the emergency department who are being discharged to home. This information is to outline your options for follow-up care. We provide all patients seen in our emergency department with a follow-up referral. The need for follow-up, as well as the timing and circumstances, are variable depending upon the specifics of your emergency department visit. If you don't have a primary care physician on staff, we will provide you with a referral. We always advise you to contact your personal physician following an emergency department visit to inform them of the circumstance of the visit and for follow-up with them and/or the need for any referrals to a consulting specialist. The emergency department will also refer you to a specialist when appropriate. This referral assures that you have the opportunity for followup care with a specialist. All of these measure are taken in an effort to provide you with optimal care, which includes your followup. Under all circumstances we always encourage you to contact your private physician who remains a resource for coordinating your care. When calling for followup care, please make the office aware that this follow-up is from your recent emergency room visit. If for any reason you are refused follow-up, please contact the [facility] emergency department at and ask to speak to the emergency department charge nurse. [facility] Primary care- Internal Medicine and Family [address] [address] Please take care to wash her hands to avoid spread of this infection and use eyedrops you have been prescribed, tobramycin, as directed. Please call and follow-up with one of our providers in the clinic for reevaluation further care and return to ER as needed and as discussed. Use cool compresses for any eye swelling and try to keep eyelid margins as clean as possible.
== END 2017-10-25 10:19 | disposition home or self-care (01) ==
LOC: MW.ED 09:35
DX: H10.32 Unspecified acute conjunctivitis, left eye (principal); Z88.1 Allergy status to other antibiotic agents
CPT/HCPCS: 99282

== ENCOUNTER 2018-03-03 19:30 | Emergency (ER) | payer OTHER ==
--- NOTE | 2018-03-03 20:24 | EDM.PDOC ---
ED HPI GENERAL MEDICAL PROBLEM - General Chief Complaint: Fever Stated Complaint: PT HAS FEVER Time Seen by Provider: 03/03/18 19:49 Source of Information: Reports: Patient History Limitations: Reports: No Limitations - History of Present Illness INITIAL COMMENTS - FREE TEXT/NARRATIVE: HISTORY AND PHYSICAL: History of present illness: Patient is a 22-year-old female who presents to the emergency room with complaints of sore throat and fever. She states that she has been using Tylenol and ibuprofen for pain but has not resolved her symptoms. She now has a generalized mild headache due to her discomfort. Denies any change in vision, recent head injury/trauma. She denies any chest pain, shortness of breath or cough. Denies any abdominal pain, nausea, vomiting, diarrhea or constipation. Review of systems: As per history of present illness and below otherwise all systems reviewed and negative. Past medical history: As per history of present illness and as reviewed below otherwise noncontributory. Surgical history: As per history of present illness and as reviewed below otherwise noncontributory. Social history: No reported history of drug or alcohol abuse. Family history: As per history of present illness and as reviewed below otherwise noncontributory. Physical exam: General: Developed and well-nourished 22-year-old female. Alert and oriented. Nontoxic appearing and in no acute distress. HEENT: Atraumatic, normocephalic, pupils equal and reactive bilaterally, negative for conjunctival pallor or scleral icterus, mucous membranes moist, erythema noted to posterior throat no exudate, neck supple, nontender, trachea midline. No drooling or trismus noted. No meningeal signs Lungs: Clear to auscultation, breath sounds equal bilaterally, chest nontender. Heart: S1S2, regular rate and rhythm without overt murmur Abdomen: Soft, nondistended, nontender. Negative for masses or hepatosplenomegaly. Negative for costovertebral tenderness. Pelvis: Stable nontender. Genitourinary: Deferred. Rectal: Deferred. Skin: Intact, warm, dry. No lesions or rashes noted. Extremities: Atraumatic, negative for cords or calf pain. Neurovascular unremarkable. Neuro: Awake, alert, oriented. Cranial nerves II through XII unremarkable. Cerebellum unremarkable. Motor and sensory unremarkable throughout. Exam nonfocal. Notes: Diagnostics: None Therapeutics: None Prescription: Darell Impression: Pharyngitis Plan: 1. Take the medication as prescribed. 2. Shaka all and/or ibuprofen as needed for pain management. Phenergan with codeine for nighttime use. This medication does cause drowsiness a do not take it will driving her needing to be functioning outside of the house. 3. Follow-up with her primary care provider in the next 1-2 days. Return to the ED as needed and as discussed. Definitive disposition and diagnosis as appropriate pending reevaluation and review of above. Treatments CONTROL PANEL TESTER: Reports: Acetaminophen throat Pain Score (Numeric/FACES): 4 - Related Data Allergies Allergy/AdvReac Type Severity Reaction Status Date / Time amoxicillin Allergy Hives Verified 03/03/18 20:11 Home Meds: Home Meds Azithromycin 1 dose PO DAILY 5 Days #1 packet 03/03/18 [Rx] Codeine/Promethazine [Phenergan with Codeine] 5 ml PO Q4HR PRN #3 cup 03/03/18 [ Rx] Past Medical History - Past Health History Medical/Surgical History: Denies Medical/Surgical History HEENT History: Reports: None Cardiovascular History: Reports: None Respiratory History: Reports: None Gastrointestinal History: Reports: None Genitourinary History: Reports: Acute Renal Failure 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: Musculoskeletal History: Reports: None Neurological History: Reports: None Psychiatric History: Reports: None Endocrine/Metabolic History: Reports: None Hematologic History: Reports: None Immunologic History: Reports: None Oncologic (Cancer) History: Reports: None Dermatologic History: Reports: None - Past Surgical History Head Surgeries/Procedures: Reports: None HEENT Surgical History: Reports: None Cardiovascular Surgical History: Reports: None Respiratory Surgical History: Reports: None GI Surgical History: Reports: None Female Surgical History: Reports: None Endocrine Surgical History: Reports: None Neurological Surgical History: Reports: None Musculoskeletal Surgical History: Reports: None Oncologic Surgical History: Reports: None Dermatological Surgical History: Reports: None Social & Family History - Family History Family Medical History: Noncontributory - Tobacco Use Smoking Status *Q: Never Smoker - Caffeine Use Caffeine Use: Reports: Coffee - Recreational Drug Use Recreational Drug Use: No ED ROS ENT - Review of Systems Review Of Systems: ROS reveals no pertinent complaints other than HPI. ED EXAM, ENT - Physical Exam Exam: See Below (See dictation) Course - Vital Signs Last Recorded V/S: Last Vital Signs Temp 98 F 03/03/18 19:30 Pulse 97 03/03/18 19:30 Resp 18 03/03/18 19:30 BP 112/57 L 03/03/18 19:30 Pulse Ox 98 03/03/18 19:30 Departure - Departure Time of Disposition: 20:24 Disposition: Home, Self-Care 01 Clinical Impression: Pharyngitis Qualifiers: Pharyngitis/tonsillitis etiology: unspecified etiology Qualified Code(s): J02.9 - Acute pharyngitis, unspecified - Discharge Information Prescriptions: Codeine/Promethazine [Phenergan with Codeine] 5 ml PO Q4HR PRN #3 cup PRN Reason: Pain Azithromycin 1 dose PO DAILY 5 Days #1 packet Instructions: Pharyngitis, [id number] Referrals: PCP,None [Primary Care Provider] - Forms: ED Department Discharge Additional Instructions: The following information is given to patients seen in the emergency department who are being discharged to home. This information is to outline your options for follow-up care. We provide all patients seen in our emergency department with a follow-up referral. The need for follow-up, as well as the timing and circumstances, are variable depending upon the specifics of your emergency department visit. If you don't have a primary care physician on staff, we will provide you with a referral. We always advise you to contact your personal physician following an emergency department visit to inform them of the circumstance of the visit and for follow-up with them and/or the need for any referrals to a consulting specialist. The emergency department will also refer you to a specialist when appropriate. This referral assures that you have the opportunity for follow-up care with a specialist. All of these measure are taken in an effort to provide you with optimal care, which includes your follow-up. Under all circumstances we always encourage you to contact your private physician who remains a resource for coordinating your care. When calling for follow-up care, please make the office aware that this follow-up is from your recent emergency room visit. If for any reason you are refused follow-up, please contact the [facility] Emergency Department at and asked to speak to the emergency department charge nurse. [facility] [address] [place] [id number] 1. Take the medication as prescribed. 2. Shaka all and/or ibuprofen as needed for pain management. Phenergan with codeine for nighttime use. This medication does cause drowsiness a do not take it will driving her needing to be functioning outside of the house. 3. Follow-up with her primary care provider in the next 1-2 days. Return to the ED as needed and as discussed.
[2018-03-03 23:09] VITALS: BP 101/63
== END 2018-03-03 20:35 | disposition home or self-care (01) ==
LOC: MW.ED 19:30
DX: J02.9 Acute pharyngitis, unspecified (principal); Z88.1 Allergy status to other antibiotic agents
CPT/HCPCS: 99282; 99283

== ENCOUNTER 2019-03-16 14:28 | Emergency (ER) | payer SELFPAY ==
[2019-03-16 15:42] LABS: BLOOD UREA NITROGEN,BUN 9 mg/dL (7.0-18.0); CARBON DIOXIDE,CO2 25.3 mmol/L (21.0-32.0); CHLORIDE,CL 106 mmol/L (98-107); GLUCOSE RANDOM 113 mg/dL (74-106); POTASSIUM,K 4.1 mmol/L (3.5-5.1); SODIUM,NA 141 mmol/L (136-145)
--- NOTE | 2019-03-16 15:48 | EDM.PDOC ---
ED HPI GENERAL MEDICAL PROBLEM - General Chief Complaint: [employer] Problem Stated Complaint: VAGINAL BLEEDING Time Seen by Provider: 03/16/19 14:39 Source of Information: Reports: Patient History Limitations: Reports: No Limitations - History of Present Illness INITIAL COMMENTS - FREE TEXT/NARRATIVE: HISTORY AND PHYSICAL: History of present illness: Patient is a 23-year-old female presents to the ED today for concern of heavy menstrual cycle. Patient states for the past 24 hours she has been bleeding through 1 super tampon an hour. Patient states over the past several hours and has lightened up and she is getting to about 2-3 hours before changing a tampon. Patient states that she had called Annemarie Conn's office and they told her to come and be evaluated in the emergency room. Patient states other than the heavy bleeding she is not having any symptoms. Patient denies fever, chills, chest pain, shortness of breath, or cough. Denies headache, neck stiff ness, change in vision, syncope, or near syncope. Denies nausea, vomiting, abdominal pain, diarrhea, constipation, or dysuria. Has not noted any blood in urine or stool. Patient has been eating and drinking appropriately. Review of systems: As per history of present illness and below otherwise all systems reviewed and negative. Past medical history: As per history of present illness and as reviewed below otherwise noncontributory. Surgical history: As per history of present illness and as reviewed below otherwise noncontributory. Social history: See social history for further information Family history: As per history of present illness and as reviewed below otherwise noncontributory. Physical exam: General: Patient is alert, oriented, and in no acute distress. Patient sitting comfortably on exam table. HEENT: Atraumatic, normocephalic, pupils equal and reactive bilaterally, negative for conjunctival pallor or scleral icterus, mucous membranes moist, TMs normal bilaterally, throat clear, neck supple, nontender, trachea midline. No drooling or trismus noted. No meningeal signs. No hot potato voice noted. Lungs: Clear to auscultation, breath sounds equal bilaterally, chest nontender. Heart: S1S2, regular rate and rhythm without overt murmur Abdomen: Soft, nondistended, nontender. Negative for masses or hepatosplenomegaly. Negative for costovertebral tenderness. Pelvis: Stable nontender. Genitourinary: Deferred. Rectal: Deferred. Skin: Intact, warm, dry. No lesions or rashes noted. Extremities: Atraumatic, negative for cords or calf pain. Neurovascular unremarkable. Neuro: Awake, alert, oriented. Cranial nerves II through XII unremarkable. Cerebellum unremarkable. Motor and sensory unremarkable throughout. Exam nonfocal. Notes: I did call and speak to Dr. Jung, [employer] on-call, who states to place patient on control pack and have her follow-up in the clinic. Voices understanding and is agreeable to plan of care. Denies any further questions or concerns at this time. Diagnostics: CBC, CMP, UA, urine hCG Therapeutics: None Prescription: Sprintec Impression: Abnormal vaginal bleeding Plan: 1. Take medication as prescribed. You can alternate ibuprofen and Tylenol as directed for pain and discomfort. 2. Follow-up with your primary care provider and [employer] provider as discussed. Return to the ED as needed and as discussed. Definitive disposition and diagnosis as appropriate pending reevaluation and review of above. - Related Data Allergies Allergy/AdvReac Type Severity Reaction Status Date / Time amoxicillin Allergy Hives Verified 03/16/19 14:53 Home Meds: Home Meds Azithromycin 1 dose PO DAILY 5 Days #1 packet 03/03/18 [Rx] Codeine/Promethazine [Phenergan with Codeine] 5 ml PO Q4HR PRN #3 cup 03/03/18 [ Rx] Past Medical History - Past Health History Medical/Surgical History: Denies Medical/Surgical History HEENT History: Reports: None Cardiovascular History: Reports: None Respiratory History: Reports: None Gastrointestinal History: Reports: None Genitourinary History: Reports: Acute Renal Failure [employer] History: Reports: Musculoskeletal History: Reports: None Neurological History: Reports: None Psychiatric History: Reports: None Endocrine/Metabolic History: Reports: None Hematologic History: Reports: None Immunologic History: Reports: None Oncologic (Cancer) History: Reports: None Dermatologic History: Reports: None - Past Surgical History Head Surgeries/Procedures: Reports: None HEENT Surgical History: Reports: None Cardiovascular Surgical History: Reports: None Respiratory Surgical History: Reports: None GI Surgical History: Reports: None Female Surgical History: Reports: None Endocrine Surgical History: Reports: None Neurological Surgical History: Reports: None Musculoskeletal Surgical History: Reports: None Oncologic Surgical History: Reports: None Dermatological Surgical History: Reports: None Social & Family History - Family History Family Medical History: Noncontributory - Tobacco Use Smoking Status *Q: Never Smoker - Caffeine Use Caffeine Use: Reports: Coffee ED ROS GENERAL - Review of Systems Review Of Systems: ROS reveals no pertinent complaints other than HPI. ED EXAM, GENERAL - Physical Exam Exam: See Below (See dictation) Course - Vital Signs Last Recorded V/S: Last Vital Signs Temp 97.5 F 03/16/19 14:53 Pulse 74 03/16/19 14:53 Resp 16 03/16/19 14:53 BP 94/64 03/16/19 14:53 Pulse Ox 98 03/16/19 14:53 - Orders/Labs/Meds Labs: Laboratory Tests 03/16/19 03/16/19 03/16/19 Range/Units 14:50 14:50 15:05 WBC 7.34 (4.0-11.0) K/uL RBC 4.17 L (4.30-5.90) M/uL Hgb 12.3 (12.0-16.0) g/dL Hct 37.8 (36.0-46.0) % MCV 90.6 (80.0-98.0) fL MCH 29.5 (27.0-32.0) pg MCHC 32.5 (31.0-37.0) g/dL RDW Std Deviation 42.3 (28.0-62.0) fl RDW Coeff of Cherie 13 (11.0-15.0) % Plt Count 280 (150-400) K/uL MPV 9.80 (7.40-12.00) fL Neut % (Auto) 55.6 (48.0-80.0) % Lymph % (Auto) 34.3 (16.0-40.0) % Mckean % (Auto) 7.5 (0.0-15.0) % Eos % (Auto) 2.3 (0.0-7.0) % Baso % (Auto) 0.3 (0.0-1.5) % Neut # (Auto) 4.1 (1.4-5.7) K/uL Lymph # (Auto) 2.5 H (0.6-2.4) K/uL Mckean # (Auto) 0.6 (0.0-0.8) K/uL Eos # (Auto) 0.2 (0.0-0.7) K/uL Baso # (Auto) 0.0 (0.0-0.1) K/uL Nucleated RBC % 0.0 /100WBC Nucleated RBCs # 0 K/uL Sodium (136-145) mmol/L Potassium (3.5-5.1) mmol/L Chloride (98-107) mmol/L Carbon Dioxide (21.0-32.0) mmol/L BUN (7.0-18.0) mg/dL Creatinine (0.6-1.0) mg/dL Est Cr Clr Drug Dosing mL/min Estimated GFR (MDRD) ml/min Glucose (74-106) mg/dL Calcium (8.5-10.1) mg/dL Total Bilirubin (0.2-1.0) mg/dL AST (15-37) IU/L ALT (14-63) IU/L Alkaline Phosphatase (46-116) U/L Total Protein (6.4-8.2) g/dL Albumin (3.4-5.0) g/dL Globulin (2.6-4.0) g/dL Albumin/Globulin Ratio (0.9-1.6) Urine Color YELLOW Urine Appearance CLEAR Urine pH 5.5 (5.0-8.0) Ur Specific [place] 1.025 (1.001-1.035) Urine Protein NEGATIVE (NEGATIVE) mg/dL Urine Glucose (UA) NEGATIVE (NEGATIVE) mg/dL Urine Ketones NEGATIVE (NEGATIVE) mg/dL Urine Occult Blood TRACE-INTACT H (NEGATIVE) Urine Nitrite NEGATIVE (NEGATIVE) Urine Bilirubin NEGATIVE (NEGATIVE) Urine Urobilinogen 0.2 (<2.0) EU/dL Ur Leukocyte Esterase NEGATIVE (NEGATIVE) Urine RBC 0-2 (0-2/HPF) Urine WBC 0-2 (0-5/HPF) Ur Epithelial Cells FEW (NONE-FEW) Urine Bacteria RARE (NEGATIVE) Urine Mucus LIGHT (NONE-MOD) Urine HCG, Qual NEGATIVE (NEGATIVE) 03/16/19 Range/Units 15:05 WBC (4.0-11.0) K/uL RBC (4.30-5.90) M/uL Hgb (12.0-16.0) g/dL Hct (36.0-46.0) % MCV (80.0-98.0) fL MCH (27.0-32.0) pg MCHC (31.0-37.0) g/dL RDW Std Deviation (28.0-62.0) fl RDW Coeff of Cherie (11.0-15.0) % Plt Count (150-400) K/uL MPV (7.40-12.00) fL Neut % (Auto) (48.0-80.0) % Lymph % (Auto) (16.0-40.0) % Mckean % (Auto) (0.0-15.0) % Eos % (Auto) (0.0-7.0) % Baso % (Auto) (0.0-1.5) % Neut # (Auto) (1.4-5.7) K/uL Lymph # (Auto) (0.6-2.4) K/uL Mckean # (Auto) (0.0-0.8) K/uL Eos # (Auto) (0.0-0.7) K/uL Baso # (Auto) (0.0-0.1) K/uL Nucleated RBC % /100WBC Nucleated RBCs # K/uL Sodium 141 (136-145) mmol/L Potassium 4.1 (3.5-5.1) mmol/L Chloride 106 (98-107) mmol/L Carbon Dioxide 25.3 (21.0-32.0) mmol/L BUN 9 (7.0-18.0) mg/dL Creatinine 0.7 (0.6-1.0) mg/dL Est Cr Clr Drug Dosing 103.40 mL/min Estimated GFR (MDRD) > 60.0 ml/min Glucose 113 H (74-106) mg/dL Calcium 9.0 (8.5-10.1) mg/dL Total Bilirubin 0.3 (0.2-1.0) mg/dL AST 15 (15-37) IU/L ALT 12 L (14-63) IU/L Alkaline Phosphatase 65 (46-116) U/L Total Protein 7.5 (6.4-8.2) g/dL Albumin 3.7 (3.4-5.0) g/dL Globulin 3.8 (2.6-4.0) g/dL Albumin/Globulin Ratio 1.0 (0.9-1.6) Urine Color Urine Appearance Urine pH (5.0-8.0) Ur Specific [place] (1.001-1.035) Urine Protein (NEGATIVE) mg/dL Urine Glucose (UA) (NEGATIVE) mg/dL Urine Ketones (NEGATIVE) mg/dL Urine Occult Blood (NEGATIVE) Urine Nitrite (NEGATIVE) Urine Bilirubin (NEGATIVE) Urine Urobilinogen (<2.0) EU/dL Ur Leukocyte Esterase (NEGATIVE) Urine RBC (0-2/HPF) Urine WBC (0-5/HPF) Ur Epithelial Cells (NONE-FEW) Urine Bacteria (NEGATIVE) Urine Mucus (NONE-MOD) Urine HCG, Qual (NEGATIVE) Departure - Departure Time of Disposition: 15:47 Disposition: Home, Self-Care 01 Clinical Impression: Abnormal vaginal bleeding - Discharge Information Referrals: Annemarie Conn CNM [Primary Care Provider] - Additional Instructions: The following information is given to patients seen in the emergency department who are being discharged to home. This information is to outline your options for follow-up care. We provide all patients seen in our emergency department with a follow-up referral. The need for follow-up, as well as the timing and circumstances, are variable depending upon the specifics of your emergency department visit. If you don't have a primary care physician on staff, we will provide you with a referral. We always advise you to contact your personal physician following an emergency department visit to inform them of the circumstance of the visit and for follow-up with them and/or the need for any referrals to a consulting specialist. The emergency department will also refer you to a specialist when appropriate. This referral assures that you have the opportunity for follow-up care with a specialist. All of these measure are taken in an effort to provide you with optimal care, which includes your follow-up. Under all circumstances we always encourage you to contact your private physician who remains a resource for coordinating your care. When calling for follow-up care, please make the office aware that this follow-up is from your recent emergency room visit. If for any reason you are refused follow-up, please contact the [facility] at and asked to speak to the emergency department charge nurse. [facility] [address], [place] [address] [facility] [address] [place] [id number] 1. Take medication as prescribed. You can alternate ibuprofen and Tylenol as directed for pain and discomfort. 2. Follow-up with your primary care provider and [employer] provider as discussed. Return to the ED as needed and as discussed.
[2019-03-16 18:58] VITALS: BP 102/60; PULSE 55
== END 2019-03-16 16:00 | disposition home or self-care (01) ==
LOC: MW.ED 14:28
DX: N93.9 Abnormal uterine and vaginal bleeding, unspecified (principal); Z88.0 Allergy status to penicillin
CPT/HCPCS: 36415; 80053; 81001; 81025; 85025; 99283; 99284

== ENCOUNTER 2019-11-10 13:34 | Emergency (ER) | payer BC ==
[2019-11-10] MEDS ORDERED: Sodium Chloride 0.9% 10 ML Syringe FLUSH PRN (14:37)
[2019-11-10] MEDS ORDERED: Sodium Chloride 0.9% 2.5 ML Syringe FLUSH PRN (14:37)
[2019-11-10] MEDS ORDERED: Sodium Chloride 0.9% 1,000 ML IV ONE ×2 (14:45→16:33)
[2019-11-10] MEDS ORDERED: Ondansetron 4 MG/2 ML SDV IVPUSH ONE ×2 (14:47)
[2019-11-10] MEDS ORDERED: Ondansetron 4 MG/2 ML SDV ONE (14:48)
[2019-11-10 15:36] LABS: BLOOD UREA NITROGEN,BUN 6 mg/dL (7.0-18.0); CARBON DIOXIDE,CO2 20.6 mmol/L (21.0-32.0); CHLORIDE,CL 103 mmol/L (98-107); GLUCOSE RANDOM 89 mg/dL (74-106); POTASSIUM,K 3.9 mmol/L (3.5-5.1); SODIUM,NA 138 mmol/L (136-145)
--- NOTE | 2019-11-10 16:39 | EDM.PDOC ---
ED HPI GENERAL MEDICAL PROBLEM - General Chief Complaint: General Stated Complaint: FEELS LIKE PASSING OUT Time Seen by Provider: 11/10/19 13:52 - History of Present Illness INITIAL COMMENTS - FREE TEXT/NARRATIVE: History of present illness: 24-year-old female presenting with feeling generally ill, nauseated, feeling dizzy when she stands upright for overly long. She does report that she vomited today. At first she was concerned she might be but she took a test and that was negative. She reports symptoms started about a week ago after 1 night when she drank too much alcohol and thinks she may have accidentally consumed "Raisa". She also is on Macrobid and Flagyl for a UTI and bacterial vaginosis which she started about 5 days ago, after the symptoms had already started. No cough, Difficulty breathing, chest pain, or fevers. Review of systems: As per history of present illness and below otherwise all systems reviewed and negative. Past medical history: As per history of present illness and as reviewed below otherwise noncontributory. Surgical history: As per history of present illness and as reviewed below otherwise noncontributory. Social history: No reported history of drug or alcohol abuse. Family history: As per history of present illness and as reviewed below otherwise noncontributory. Physical exam: HEENT: Atraumatic, normocephalic, mouth appear dry Neck: supple, nontender, trachea midline. Lungs: No respiratory distress. Heart: RRR Abdomen: Soft, nondistended, nontender. Pelvis: Stable nontender. Extremities: Atraumatic. Neurovascularly unremarkable. Neuro: Awake, alert, oriented. Neuro Exam nonfocal. No ataxia. Psych: No anxiety or depression. No suicidal ideation. Diagnostics: [] Therapeutics: [] MDM: Impression: [] Plan: [] Definitive disposition and diagnosis as appropriate pending reevaluation and review of above. - Related Data Allergies Allergy/AdvReac Type Severity Reaction Status Date / Time amoxicillin Allergy Hives Verified 11/10/19 13:47 Home Meds: Home Meds Control 11/10/19 [History] Ondansetron [Zofran ODT] 4 mg PO Q6H PRN #20 tab.dis 11/10/19 [Rx] Sulfamethoxazole/Trimethoprim [Bactrim Ds Tablet] 1 tab PO ASDIRECTED 11/10/19 [ History] metroNIDAZOLE [Flagyl] 1 tab PO ASDIRECTED 11/10/19 [History] Past Medical History - Past Health History Medical/Surgical History: Denies Medical/Surgical History HEENT History: Reports: None Cardiovascular History: Reports: None Respiratory History: Reports: None Gastrointestinal History: Reports: None Genitourinary History: Reports: None 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 Musculoskeletal History: Reports: None Neurological History: Reports: None Psychiatric History: Reports: None Endocrine/Metabolic History: Reports: None Hematologic History: Reports: None Immunologic History: Reports: None Oncologic (Cancer) History: Reports: None Dermatologic History: Reports: None - Infectious Disease History Infectious Disease History: Reports: None - Past Surgical History Head Surgeries/Procedures: Reports: None HEENT Surgical History: Reports: None Cardiovascular Surgical History: Reports: None Respiratory Surgical History: Reports: None GI Surgical History: Reports: None Female Surgical History: Reports: None Endocrine Surgical History: Reports: None Neurological Surgical History: Reports: None Musculoskeletal Surgical History: Reports: None Oncologic Surgical History: Reports: None Dermatological Surgical History: Reports: None Social & Family History - Family History Family Medical History: Noncontributory - Tobacco Use Smoking Status *Q: Never Smoker - Caffeine Use Caffeine Use: Reports: Coffee, Tea - Recreational Drug Use Recreational Drug Use: Yes Recreational Drug Type: Reports: Ecstasy Recreational Drug Use Frequency: Socially ED ROS GENERAL - Review of Systems Review Of Systems: See Below (See dictation) ED EXAM, GENERAL - Physical Exam Exam: See Below (See dictation) EKG INTERPRETATION EKG Interpretation Comments: EKG performed at 2:55 PM, sinus rhythm, rate 53, left atrial enlargement, no acute ischemia, no arrhythmia. No STEMI. Interpreted by me Course - Vital Signs Last Recorded V/S: Last Vital Signs Temp 96.1 F L 11/10/19 13:49 Pulse 75 11/10/19 16:37 Resp 16 11/10/19 13:49 BP 129/80 11/10/19 16:37 Pulse Ox 98 11/10/19 16:37 - Orders/Labs/Meds Orders: Active Orders 24 hr Category Date Time Status EKG Documentation Completion [RC] STAT Care 11/10/19 14:37 Active Sodium Chloride 0.9% [Saline Flush] Med 11/10/19 14:37 Active 10 ml FLUSH ASDIRECTED PRN Sodium Chloride 0.9% [Saline Flush] Med 11/10/19 14:37 Active 2.5 ml FLUSH ASDIRECTED PRN Saline Lock Insert [OM.PC] Stat Oth 11/10/19 14:37 Ordered Medication Orders Sodium Chloride (Saline Flush) 10 ml FLUSH ASDIRECTED PRN PRN Reason: Keep Vein Open Last Admin: 11/10/19 14:48 Dose: 10 ml Sodium Chloride (Saline Flush) 2.5 ml FLUSH ASDIRECTED PRN PRN Reason: Keep Vein Open Last Admin: 11/10/19 14:48 Dose: 2.5 ml Labs: Laboratory Tests 11/10/19 11/10/19 11/10/19 Range/Units 14:18 14:18 14:52 WBC 8.17 (4.0-11.0) K/uL RBC 4.40 (4.30-5.90) M/uL Hgb 12.6 (12.0-16.0) g/dL Hct 39.1 (36.0-46.0) % MCV 88.9 (80.0-98.0) fL MCH 28.6 (27.0-32.0) pg MCHC 32.2 (31.0-37.0) g/dL RDW Std Deviation 40.3 (28.0-62.0) fl RDW Coeff of Cherie 12 (11.0-15.0) % Plt Count 338 (150-400) K/uL MPV 9.90 (7.40-12.00) fL Neut % (Auto) 61.5 (48.0-80.0) % Lymph % (Auto) 30.0 (16.0-40.0) % [place] % (Auto) 8.1 (0.0-15.0) % Eos % (Auto) 0.2 (0.0-7.0) % Baso % (Auto) 0.2 (0.0-1.5) % Neut # (Auto) 5.0 (1.4-5.7) K/uL Lymph # (Auto) 2.5 H (0.6-2.4) K/uL [place] # (Auto) 0.7 (0.0-0.8) K/uL Eos # (Auto) 0.0 (0.0-0.7) K/uL Baso # (Auto) 0.0 (0.0-0.1) K/uL Nucleated RBC % 0.0 /100WBC Nucleated RBCs # 0 K/uL Sodium (136-145) mmol/L Potassium (3.5-5.1) mmol/L Chloride (98-107) mmol/L Carbon Dioxide (21.0-32.0) mmol/L BUN (7.0-18.0) mg/dL Creatinine (0.6-1.0) mg/dL Est Cr Clr Drug Dosing mL/min Estimated GFR (MDRD) ml/min Glucose (74-106) mg/dL Calcium (8.5-10.1) mg/dL Magnesium (1.8-2.4) mg/dL Total Bilirubin (0.2-1.0) mg/dL AST (15-37) IU/L ALT (14-63) IU/L Alkaline Phosphatase (46-116) U/L Total Protein (6.4-8.2) g/dL Albumin (3.4-5.0) g/dL Globulin (2.6-4.0) g/dL Albumin/Globulin Ratio (0.9-1.6) TSH 3rd Generation (0.36-3.74) uIU/mL Urine Color YELLOW Urine Appearance CLEAR Urine pH 6.0 (5.0-8.0) Ur Specific [place] 1.025 (1.001-1.035) Urine Protein NEGATIVE (NEGATIVE) mg/dL Urine Glucose (UA) NEGATIVE (NEGATIVE) mg/dL Urine Ketones 40 H (NEGATIVE) mg/dL Urine Occult Blood NEGATIVE (NEGATIVE) Urine Nitrite NEGATIVE (NEGATIVE) Urine Bilirubin NEGATIVE (NEGATIVE) Urine Urobilinogen 0.2 (<2.0) EU/dL Ur Leukocyte Esterase NEGATIVE (NEGATIVE) Urine HCG, Qual NEGATIVE (NEGATIVE) 11/10/19 Range/Units 14:52 WBC (4.0-11.0) K/uL RBC (4.30-5.90) M/uL Hgb (12.0-16.0) g/dL Hct (36.0-46.0) % MCV (80.0-98.0) fL MCH (27.0-32.0) pg MCHC (31.0-37.0) g/dL RDW Std Deviation (28.0-62.0) fl RDW Coeff of Cherie (11.0-15.0) % Plt Count (150-400) K/uL MPV (7.40-12.00) fL Neut % (Auto) (48.0-80.0) % Lymph % (Auto) (16.0-40.0) % [place] % (Auto) (0.0-15.0) % Eos % (Auto) (0.0-7.0) % Baso % (Auto) (0.0-1.5) % Neut # (Auto) (1.4-5.7) K/uL Lymph # (Auto) (0.6-2.4) K/uL [place] # (Auto) (0.0-0.8) K/uL Eos # (Auto) (0.0-0.7) K/uL Baso # (Auto) (0.0-0.1) K/uL Nucleated RBC % /100WBC Nucleated RBCs # K/uL Sodium 138 (136-145) mmol/L Potassium 3.9 (3.5-5.1) mmol/L Chloride 103 (98-107) mmol/L Carbon Dioxide 20.6 L (21.0-32.0) mmol/L BUN 6 L (7.0-18.0) mg/dL Creatinine 0.9 (0.6-1.0) mg/dL Est Cr Clr Drug Dosing 79.73 mL/min Estimated GFR (MDRD) > 60.0 ml/min Glucose 89 (74-106) mg/dL Calcium 9.4 (8.5-10.1) mg/dL Magnesium 1.9 (1.8-2.4) mg/dL Total Bilirubin 0.5 (0.2-1.0) mg/dL AST 16 (15-37) IU/L ALT 10 L (14-63) IU/L Alkaline Phosphatase 58 (46-116) U/L Total Protein 7.3 (6.4-8.2) g/dL Albumin 3.8 (3.4-5.0) g/dL Globulin 3.5 (2.6-4.0) g/dL Albumin/Globulin Ratio 1.1 (0.9-1.6) TSH 3rd Generation 2.77 (0.36-3.74) uIU/mL Urine Color Urine Appearance Urine pH (5.0-8.0) Ur Specific [place] (1.001-1.035) Urine Protein (NEGATIVE) mg/dL Urine Glucose (UA) (NEGATIVE) mg/dL Urine Ketones (NEGATIVE) mg/dL Urine Occult Blood (NEGATIVE) Urine Nitrite (NEGATIVE) Urine Bilirubin (NEGATIVE) Urine Urobilinogen (<2.0) EU/dL Ur Leukocyte Esterase (NEGATIVE) Urine HCG, Qual (NEGATIVE) Meds: Medications Generic Name Dose Route Start Last Admin Trade Name Freq PRN Reason Stop Dose Admin Sodium Chloride 10 ml 11/10/19 14:37 11/10/19 14:48 Saline Flush FLUSH 10 ml ASDIRECTED PRN Administration Keep Vein Open Sodium Chloride 2.5 ml 11/10/19 14:37 11/10/19 14:48 Saline Flush FLUSH 2.5 ml ASDIRECTED PRN Administration Keep Vein Open Discontinued Medications Generic Name Dose Route Start Last Admin Trade Name Freq PRN Reason Stop Dose Admin Sodium Chloride 1,000 mls @ 999 mls/hr 11/10/19 14:45 11/10/19 14:48 Normal Saline IV 11/10/19 15:45 999 mls/hr .Bolus ONE Administration Sodium Chloride 1,000 mls @ 999 mls/min 11/10/19 16:33 11/10/19 16:43 Normal Saline IV 11/10/19 16:34 999 mls/min .Bolus ONE Administration Ondansetron HCl 4 mg 11/10/19 14:47 11/10/19 14:49 Zofran IVPUSH 11/10/19 14:48 4 mg ONETIME ONE Administration Ondansetron HCl 4 mg 11/10/19 14:47 11/10/19 14:56 Zofran IVPUSH 11/10/19 14:48 Not Given ONETIME ONE Ondansetron HCl Confirm 11/10/19 14:48 11/10/19 14:56 Zofran Administered 11/10/19 14:49 Not Given Dose 4 mg .ROUTE .STK-MED ONE - Re-Assessments/Exams Free Text/Narrative Re-Assessment/Exam: 11/10/19 16:37 On reassessment the patient is resting comfortably. She had initially told the nurse she was feeling better, however when I reevaluated the patient she now reports that she does not feel any better and still feels weak. Therefore additional liter of fluid will be given. If her symptoms are improved at that time she can be discharged with an unremarkable work-up. 11/10/19 17:28 Now feeling somewhat better. Her coloration appears improved. Her face/eyes appears less sunken. Lips are less dry. Again discussed all results with the patient. She is feeling well enough now that she would like to be discharged. We discussed plan for 24 hours of clear liquid diet and slowly progressing to bland foods including rice and crackers. She agrees with this plan. We will prescribe Zofran prescription, which was sent electronically to her preferred pharmacy. Departure - Departure Time of Disposition: 17:28 Disposition: Home, Self-Care 01 Condition: Good Clinical Impression: Dizziness Nausea & vomiting Qualifiers: Vomiting type: unspecified Vomiting Intractability: non-intractable Qualified Code(s): R11.2 - Nausea with vomiting, unspecified - Discharge Information Prescriptions: Ondansetron [Zofran ODT] 4 mg PO Q6H PRN #20 tab.dis PRN Reason: Nausea/Vomiting Instructions: Nausea and Vomiting, Adult, [id number], Nausea, Adult, Easy-to- Read, Dizziness Referrals: Mary Devlin ASSOCIATE MANAGER AFFILI[employer] MARKETING [Primary Care Provider] - Forms: ED Department Discharge Additional Instructions: The following information is given to patients seen in the emergency department who are being discharged to home. This information is to outline your options for follow-up care. We provide all patients seen in our emergency department with a follow-up referral. The need for follow-up, as well as the timing and circumstances, are variable depending upon the specifics of your emergency department visit. If you don't have a primary care physician on staff, we will provide you with a referral. We always advise you to contact your personal physician following an emergency department visit to inform them of the circumstance of the visit and for follow-up with them and/or the need for any referrals to a consulting specialist. The emergency department will also refer you to a specialist when appropriate. This referral assures that you have the opportunity for follow-up care with a specialist. All of these measure are taken in an effort to provide you with optimal care, which includes your follow-up. Under all circumstances we always encourage you to contact your private physician who remains a resource for coordinating your care. When calling for follow-up care, please make the office aware that this follow-up is from your recent emergency room visit. If for any reason you are refused follow-up, please contact the [facility] Emergency Department at and asked to speak to the emergency department charge nurse. Sepsis Event Note (ED) - Evaluation Sepsis Screening Result: No Definite Risk - Focused Exam Vital Signs: Vital Signs Temp Pulse Resp BP Pulse Ox 11/10/19 16:37 75 129/80 98 11/10/19 15:24 81 120/85 99 11/10/19 13:49 96.1 F L 96 16 130/80 98 - My Orders Last 24 Hours: My Active Orders 11/10/19 14:37 EKG Documentation Completion [RC] STAT Sodium Chloride 0.9% [Saline Flush] 10 ml FLUSH ASDIRECTED PRN Sodium Chloride 0.9% [Saline Flush] 2.5 ml FLUSH ASDIRECTED PRN Saline Lock Insert [OM.PC] Stat - Assessment/Plan Last 24 Hours: My Active Orders 11/10/19 14:37 EKG Documentation Completion [RC] STAT Sodium Chloride 0.9% [Saline Flush] 10 ml FLUSH ASDIRECTED PRN Sodium Chloride 0.9% [Saline Flush] 2.5 ml FLUSH ASDIRECTED PRN Saline Lock Insert [OM.PC] Stat
[2019-11-10 17:39] VITALS: BP 134/84; PULSE 79
== END 2019-11-10 17:39 | disposition home or self-care (01) ==
LOC: MW.ED 13:34
DX: R42 Dizziness and giddiness (principal); R11.2 Nausea with vomiting, unspecified; Z88.1 Allergy status to other antibiotic agents
CPT/HCPCS: 36415; 80053; 81003; 81025; 83735; 84443; 85025; 93005; 96361; 96374; 99284; J2405; J7030

== ENCOUNTER 2020-09-12 07:46 | Day surgery (SDC) | payer BC ==
[~2020-09-12 07:46] MED LIST: Glycopyrrolate 0.2 MG/ML SDV ONE; Ketorolac 30 MG/ML SDV ONE; Lactated Ringers 1,000 ML IV SCH; Lidocaine 2% 5 ML SDV ONE; Midazolam 1 MG/ML 2 ML SDV ONE; Ondansetron 4 MG/2 ML SDV ONE; Propofol 200 MG/20 ML SDV ONE; fentaNYL 100 MCG/2 ML SDV ONE
--- NOTE | 2020-09-12 08:19 | PCM.PREANE ---
Preanesthetic Assessment - Anesthesia/Transfusion/Family Hx Anesthesia History: Prior Anesthesia Without Reaction Family History of Anesthesia Reaction: No Transfusion History: No Prior Transfusion(s) - Review of Systems General: No Symptoms Pulmonary: No Symptoms Cardiovascular: No Symptoms Gastrointestinal: No Symptoms Neurological: No Symptoms Other: Reports: None - Physical Assessment NPO Status Date: 09/12/20 NPO Status Time: 00:01 Height: 5 ft 3 in Weight: 143 lb ASA Class: 2 Mental Status: Alert & Oriented x3 Airway Class: Mallampati = 2 Dentition: Reports: Normal Dentition ROM/Head Extension: Full Lungs: Clear to Auscultation, Normal Respiratory Effort Cardiovascular: Regular Rate, Regular Rhythm - Allergies Allergies/Adverse Reactions: Allergies Allergy/AdvReac Type Severity Reaction Status Date / Time amoxicillin Allergy Hives Verified 09/06/20 07:53 - Anesthesia Plan Pre-Op Medication Ordered: None - Acknowledgements Anesthesia Type Planned: General Anesthesia Pt an Appropriate Candidate for the Planned Anesthesia: Yes Alternatives and Risks of Anesthesia Discussed w Pt/Guardian: Yes Pt/Guardian Understands and Agrees with Anesthesia Plan: Yes Additional Comments: npo after mn tob none etoh none depression head aches passing out episodes related to needle sticks or watching medical shows bmi 25 no asthma or rx par no questions PreAnesthesia Questionnaire - Past Health History Medical/Surgical History: Denies Medical/Surgical History HEENT History: Reports: None Cardiovascular History: Reports: None Respiratory History: Reports: None Gastrointestinal History: Reports: GERD Genitourinary History: Reports: None 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: Musculoskeletal History: Reports: None Neurological History: Reports: None Psychiatric History: Reports: Anxiety Endocrine/Metabolic History: Reports: None Hematologic History: Reports: None Immunologic History: Reports: None Oncologic (Cancer) History: Reports: None Dermatologic History: Reports: None - Infectious Disease History Infectious Disease History: Reports: None - Past Surgical History Head Surgeries/Procedures: Reports: None HEENT Surgical History: Reports: None Cardiovascular Surgical History: Reports: None Respiratory Surgical History: Reports: None GI Surgical History: Reports: EGD Female Surgical History: Reports: None Endocrine Surgical History: Reports: None Neurological Surgical History: Reports: None Musculoskeletal Surgical History: Reports: None Oncologic Surgical History: Reports: None Dermatological Surgical History: Reports: None - SUBSTANCE USE Tobacco Use Status *Q: Light Tobacco User Tobacco Use Within Last Twelve Months: Vaping - HOME MEDS Home Medications: Home Meds Cholecalciferol (Vitamin D3) [Vitamin D3] 1 tab PO DAILY 09/06/20 [History] Cyanocobalamin (Vitamin B12) [Vitamin B12] 1 tab PO DAILY 09/06/20 [History] Fexofenadine HCl [Kyara Allergy] 1 tab PO DAILY 09/06/20 [History] Lysine 1,000 mg PO DAILY 09/06/20 [History] Norethindrone 0.35 mg PO DAILY 09/06/20 [History] Omeprazole Magnesium [Prilosec Otc] 1 tab PO ASDIRECTED PRN 09/06/20 [History] valACYclovir HCl [valACYclovir] 2 tab PO ASDIRECTED PRN 09/06/20 [History] - CURRENT (IN HOUSE) MEDS Current Meds: Current Medications Lactated Ringer's (Ringers, Lactated) 1,000 mls @ 100 mls/hr IV ASDIRECTED JASSI Discontinued Medications Fentanyl (Fentanyl 100 Mcg/2 Ml Sdv) Confirm Administered Dose 100 mcg .ROUTE .STK-MED ONE Stop: 09/12/20 07:04 Glycopyrrolate (Glycopyrrolate 0.2 Mg/Ml Sdv) Confirm Administered Dose 0.2 mg .ROUTE .STK-MED ONE Stop: 09/12/20 07:06 Ketorolac Tromethamine (Ketorolac 30 Mg/Ml Sdv) Confirm Administered Dose 30 mg .ROUTE .STK-MED ONE Stop: 09/12/20 07:06 Lidocaine (Lidocaine 2% 5 Ml Sdv) Confirm Administered Dose 5 ml .ROUTE .STK-MED ONE Stop: 09/12/20 07:06 Midazolam HCl (Midazolam 1 Mg/Ml 2 Ml Sdv) Confirm Administered Dose 2 mg .ROUTE .STK-MED ONE Stop: 09/12/20 07:05 Ondansetron HCl (Ondansetron 4 Mg/2 Ml Sdv) Confirm Administered Dose 4 mg .ROUTE .STK-MED ONE Stop: 09/12/20 07:06 Propofol (Propofol 200 Mg/20 Ml Sdv) Confirm Administered Dose 200 mg .ROUTE .STK-MED ONE Stop: 09/12/20 07:04
--- NOTE | 2020-09-12 09:05 | PCM.DCSUM1 ---
Discharge Summary - Hospital Course Diagnosis: Stroke: No - Discharge Data Discharge Date: 09/12/20 Discharge Disposition: Home, Self-Care 01 Condition: Good - Referral to Home Health Primary Care Physician: Kevin Cooper MD - Patient Instructions Diet: Usual Diet as Tolerated Activity: As Tolerated - Discharge Plan Home Medications: Home Meds Cholecalciferol (Vitamin D3) [Vitamin D3] 1 tab PO DAILY 09/06/20 [History] Cyanocobalamin (Vitamin B12) [Vitamin B12] 1 tab PO DAILY 09/06/20 [History] Fexofenadine HCl [Kyara Allergy] 1 tab PO DAILY 09/06/20 [History] Lysine 1,000 mg PO DAILY 09/06/20 [History] Norethindrone 0.35 mg PO DAILY 09/06/20 [History] Omeprazole Magnesium [Prilosec Otc] 1 tab PO ASDIRECTED PRN 09/06/20 [History] valACYclovir HCl [valACYclovir] 2 tab PO ASDIRECTED PRN 09/06/20 [History] - Discharge Summary/Plan Comment DC Time >30 min.: Yes - General Info Date of Service: 09/12/20 Functional Status: Reports: Pain Controlled - Review of Systems General: Reports: No Symptoms HEENT: Reports: No Symptoms Pulmonary: Reports: No Symptoms Cardiovascular: Reports: No Symptoms Gastrointestinal: Reports: No Symptoms Genitourinary: Reports: No Symptoms Musculoskeletal: Reports: No Symptoms Skin: Reports: No Symptoms Neurological: Reports: No Symptoms Psychiatric: Reports: No Symptoms - Patient Data Vitals - Most Recent: Last Vital Signs Temp 36.3 C 09/12/20 07:56 Pulse 73 09/12/20 07:56 Resp 15 09/12/20 07:56 BP 114/65 09/12/20 07:56 Pulse Ox 95 09/12/20 07:56 Weight - Most Recent: 64.864 kg Lab Results - Last 24 hrs: Laboratory Results - last 24 hr 09/12/20 Range/Units 07:55 Urine HCG, Qual NEGATIVE (NEGATIVE) Med Orders - Current: Current Medications Lactated Ringer's (Ringers, Lactated) 1,000 mls @ 100 mls/hr IV ASDIRECTED JASSI Last Admin: 09/12/20 08:05 Dose: 100 mls/hr Documented by: Discontinued Medications Fentanyl (Fentanyl 100 Mcg/2 Ml Sdv) Confirm Administered Dose 100 mcg .ROUTE .STK-MED ONE Stop: 09/12/20 07:04 Glycopyrrolate (Glycopyrrolate 0.2 Mg/Ml Sdv) Confirm Administered Dose 0.2 mg .ROUTE .STK-MED ONE Stop: 09/12/20 07:06 Ketorolac Tromethamine (Ketorolac 30 Mg/Ml Sdv) Confirm Administered Dose 30 mg .ROUTE .STK-MED ONE Stop: 09/12/20 07:06 Lidocaine (Lidocaine 2% 5 Ml Sdv) Confirm Administered Dose 5 ml .ROUTE .STK-MED ONE Stop: 09/12/20 07:06 Midazolam HCl (Midazolam 1 Mg/Ml 2 Ml Sdv) Confirm Administered Dose 2 mg .ROUTE .STK-MED ONE Stop: 09/12/20 07:05 Ondansetron HCl (Ondansetron 4 Mg/2 Ml Sdv) Confirm Administered Dose 4 mg .ROUTE .STK-MED ONE Stop: 09/12/20 07:06 Propofol (Propofol 200 Mg/20 Ml Sdv) Confirm Administered Dose 200 mg .ROUTE .STK-MED ONE Stop: 09/12/20 07:04 - Exam General: Reports: Alert, Oriented HEENT: Reports: Pupils Equal, Pupils Reactive, EOMI, Mucous Membr. Moist/[place] Neck: Reports: Supple Lungs: Reports: Clear to Auscultation, Normal Respiratory Effort Cardiovascular: Reports: Regular Rate, Regular Rhythm GI/Abdominal Exam: Normal Bowel Sounds, Soft, Non-Tender, No Organomegaly, No Distention, No Abnormal Bruit, No Mass, Pelvis Stable (Female) Exam: Normal External Exam, Normal Speculum Exam, Normal Bimanual Exam Rectal (Female) Exam: Normal Exam, Normal Rectal Tone Back Exam: Reports: Normal Inspection, Full Range of Motion Extremities: Normal Inspection, Normal Range of Motion, Non-Tender, No Pedal Edema, Normal Capillary Refill Skin: Reports: Warm, Dry, Intact Wound/Incisions: Reports: Healing Well Neurological: Reports: No New Focal Deficit Psy/Mental Status: Reports: Alert, Normal Affect, Normal Mood
--- NOTE | 2020-09-12 09:09 | PCM.OPNOTE ---
- General Post-Op/Procedure Note Date of Surgery/Procedure: 09/12/20 Operative Procedure(s): Leep Pre Op Diagnosis: ASCUS Post-Op Diagnosis: Same Anesthesia Technique: General LMA Primary Surgeon: Kevin Cooper EBL in mLs: 25 Complications: None Condition: Good
--- NOTE | 2020-09-12 09:40 | PCM.POSTAN ---
POST ANESTHESIA ASSESSMENT - MENTAL STATUS Mental Status: Alert (no anesthetic problems), Oriented - VITAL SIGNS Vital Signs: Last Vital Signs Temp 97.3 F 09/12/20 09:20 Pulse 88 09/12/20 09:20 Resp 14 09/12/20 09:20 BP 110/59 L 09/12/20 09:20 Pulse Ox 97 09/12/20 09:20 - RESPIRATORY Respiratory Status: Respiratory Rate WNL, Airway Patent, O2 Saturation Stable - CARDIOVASCULAR CV Status: Pulse Rate WNL, Blood Pressure Stable - GASTROINTESTINAL GI Status: No Symptoms - POST OP HYDRATION Hydration Status: Adequate & Stable
--- NOTE | 2020-09-12 09:59 | PCM48HPAN ---
Post Anesthesia Note - EVALUATION WITHIN 48HRS OF ANESTHETIC Vital Signs in Normal Range: Yes Patient Participated in Evaluation: Yes Respiratory Function Stable: Yes Airway Patent: Yes Cardiovascular Function Stable: Yes Hydration Status Stable: Yes Pain Control Satisfactory: Yes Nausea and Vomiting Control Satisfactory: Yes Mental Status Recovered: Yes Vital Signs: Last Vital Signs Temp 36.3 C 09/12/20 09:20 Pulse 88 09/12/20 09:20 Resp 14 09/12/20 09:20 BP 110/59 L 09/12/20 09:20 Pulse Ox 97 09/12/20 09:20
[2020-09-12 10:35] VITALS: BP 106/55; PULSE 61
--- NOTE | 2020-09-13 07:52 | OR ---
SURGEON: Kevin Cooper MD DATE OF PROCEDURE: 09/12/2020 PREOPERATIVE DIAGNOSIS: Atypical squamous cells of undetermined significance with abnormal Pap smear. POSTOPERATIVE DIAGNOSIS: Atypical squamous cells of undetermined significance with abnormal Pap smear. OPERATION PERFORMED: Loop electrosurgical excision procedure, conization of the cervix. PRIMARY SURGEON: Kevin Cooper MD MAITRE D': OR tech. ANESTHESIA: General with LMA. ESTIMATED BLOOD LOSS: Less than 25 mL. COMPLICATIONS: None. FINDINGS: ASCUS. INDICATIONS FOR SURGERY: [place] refer to the admit note. DESCRIPTION OF PROCEDURE: The patient was brought to the OR, properly identified, and after adequate level of anesthesia, the patient was placed in lithotomy position, prepped and draped in sterile fashion as usual. A weighted speculum was placed in the vagina and the cervix grabbed with Allis clamp on both sides at 3 and 9 o'clock and infiltrated with about 10 mL of 1% Xylocaine with epi, and after that, appropriate-sized loop excision is done and the part of the cervix around the transformation zone excised without any problem. The bed of the excision was cauterized with a ball cautery. There was no bleeding and once making sure that there was no bleeding and everything was okay, the procedure was ended. Instrument and hardware retrieved from the abdomen, and instrument and hardware retrieved from the vagina. The patient tolerated the procedure well, went to recovery room in stable general condition. CHAY / DON /[id number]
== END 2020-09-12 10:15 | disposition home or self-care (01) ==
LOC: MW.SDS 07:46
PROVIDERS: ATTEND Obstetrics & Gynecology
DX: N87.1 Moderate cervical dysplasia (principal); N72 Inflammatory disease of cervix uteri; F17.210 Nicotine dependence, cigarettes, uncomplicated; Z79.899 Other long term (current) drug therapy; Z88.1 Allergy status to other antibiotic agents
CPT/HCPCS: 00940; 81025; 88307; J1885; J2250; J2405; J2704; J3010; J3490; J7120

== ENCOUNTER 2021-01-30 19:54 | Emergency (ER) | payer BC ==
--- NOTE | 2021-01-30 20:41 | EDM.PDOC ---
ED HPI GENERAL MEDICAL PROBLEM - General Chief Complaint: Abdominal Pain Stated Complaint: ABDOMINAL PAIN, ABNORMAL BLEEDING Time Seen by Provider: 01/30/21 20:25 - History of Present Illness INITIAL COMMENTS - FREE TEXT/NARRATIVE: 25-year-old female on continuous form of control had a withdrawal period in November but has been having some lower abdominal sharp cramping discomfort associated with some spotting and pink-colored discharge for the last week. No fevers no dysuria or hematuria no chest pain or shortness of breath no upper abdominal pain no nausea or vomiting or diarrhea. Symptoms are constant moderate without exacerbating or alleviating factors radiation or other associated symptoms. Abdomen Pain Score (Numeric/FACES): 5 - Related Data Allergies Allergy/AdvReac Type Severity Reaction Status Date / Time amoxicillin Allergy Hives Verified 01/30/21 20:29 Home Meds: Home Meds Cholecalciferol (Vitamin D3) [Vitamin D3] 1 tab PO DAILY 09/06/20 [History] Cyanocobalamin (Vitamin B12) [Vitamin B12] 1 tab PO DAILY 09/06/20 [History] Fexofenadine HCl [Kyara Allergy] 1 tab PO DAILY 09/06/20 [History] Lysine 1,000 mg PO DAILY 09/06/20 [History] Norethindrone 0.35 mg PO DAILY 09/06/20 [History] Omeprazole Magnesium [Prilosec Otc] 1 tab PO ASDIRECTED PRN 09/06/20 [History] valACYclovir HCl [valACYclovir] 2 tab PO ASDIRECTED PRN 09/06/20 [History] metroNIDAZOLE [Metronidazole] 500 mg PO BID 7 Days #14 tablet 01/30/21 [Rx] Past Medical History - Past Health History Medical/Surgical History: Denies Medical/Surgical History HEENT History: Reports: None Cardiovascular History: Reports: None Respiratory History: Reports: None Gastrointestinal History: Reports: GERD Genitourinary History: Reports: None CABLE INSPECTOR History: Reports: Musculoskeletal History: Reports: None Neurological History: Reports: None Psychiatric History: Reports: Anxiety Endocrine/Metabolic History: Reports: None Insulin Pump Model and Scoop Filler: None Hematologic History: Reports: None Immunologic History: Reports: None Oncologic (Cancer) History: Reports: None Dermatologic History: Reports: None - Infectious Disease History Infectious Disease History: Reports: None - Past Surgical History Head Surgeries/Procedures: Reports: None HEENT Surgical History: Reports: None Cardiovascular Surgical History: Reports: None Respiratory Surgical History: Reports: None GI Surgical History: Reports: EGD Female Surgical History: Reports: LEEP Endocrine Surgical History: Reports: None Neurological Surgical History: Reports: None Musculoskeletal Surgical History: Reports: None Oncologic Surgical History: Reports: None Dermatological Surgical History: Reports: None Social & Family History - Family History Family Medical History: No Pertinent Family History - Caffeine Use Caffeine Use: Reports: Coffee, Tea - Recreational Drug Use Recreational Drug Use: No ED ROS GENERAL - Review of Systems Review Of Systems: See Below Free Text/Narrative/Comment: General: No fever. ENT: No sore throat. Neck: No neck stiffness. Respiratory: No shortness of breath. Cardiac: No chest pain. Gastrointestinal: Per HPI Urinary: Per HPI Musculoskeletal: No myalgias/arthralgias. Neurologic: No headache. ED EXAM, GENERAL - Physical Exam Exam: See Below Free Text/Narrative:: General Appearance: No acute distress, appears comfortable Skin: No rash HEENT: Normocephalic/atraumatic, sclera anicteric, mucous membranes moist Neck: Normal range of motion Chest and Lungs: Bilateral breath sounds, clear to auscultation Cardiovascular: Regular rate and rhythm, no murmur Abdomen: Soft, non-tender Musculoskeletal: No edema or tenderness Neurologic: Awake, alert, no obvious deficits, moving all extremities Psychiatric: Appropriate, cooperative Course - Vital Signs Last Recorded V/S: Last Vital Signs Temp 98.4 F 01/30/21 20:30 Pulse 89 01/30/21 20:30 Resp 18 01/30/21 20:30 BP 125/64 01/30/21 20:30 Pulse Ox 97 01/30/21 20:30 - Orders/Labs/Meds Orders: Active Orders 24 hr Category Date Time Status CHLAMYDIA AND GONORRHEA BY TMA Stat Lab 01/30/21 20:50 Received Labs: Laboratory Tests 01/30/21 01/30/21 01/30/21 Range/Units 20:30 20:30 20:50 Urine Color YELLOW Urine Appearance CLEAR Urine pH 6.0 (5.0-8.0) Ur Specific Colp 1.020 (1.001-1.035) Urine Protein NEGATIVE (NEGATIVE) mg/dL Urine Glucose (UA) NEGATIVE (NEGATIVE) mg/dL Urine Ketones NEGATIVE (NEGATIVE) mg/dL Urine Occult Blood NEGATIVE (NEGATIVE) Urine Nitrite NEGATIVE (NEGATIVE) Urine Bilirubin NEGATIVE (NEGATIVE) Urine Urobilinogen 0.2 (<2.0) EU/dL Ur Leukocyte Esterase NEGATIVE (NEGATIVE) Urine RBC 0-1 (0-2/HPF) Urine WBC 0-1 (0-5/HPF) Ur Epithelial Cells RARE (NONE-FEW) Urine Bacteria RARE (NEGATIVE) Urine HCG, Qual NEGATIVE (NEGATIVE) Stephanie species DNA NEGATIVE (NEGATIVE) Gardnerella DNA Probe NEGATIVE (NEGATIVE) Trichomonas DNA Probe NEGATIVE (NEGATIVE) Departure - Departure Time of Disposition: 22:51 Disposition: Home, Self-Care 01 Condition: Good Clinical Impression: Bacterial vaginitis - Discharge Information *PRESCRIPTION DRUG MONITORING PROGRAM REVIEWED*: Not Applicable *COPY OF PRESCRIPTION DRUG MONITORING REPORT IN PATIENT MT: Not Applicable Prescriptions: metroNIDAZOLE [Metronidazole] 500 mg PO BID 7 Days #14 tablet Instructions: Bacterial Vaginosis, [id number] Forms: ED Department Discharge Additional Instructions: I encourage you to follow-up with one of the gynecology offices. [facility] [address] [place] [address] [facility] [address] [place] [address] The sexually-transmitted infection swabs will come back in 48 to 72 hours and you will receive a phone call if these are abnormal. If your symptoms have not improved with the Flagyl I encourage you to follow-up with gynecology. The following information is given to patients seen in the emergency department who are being discharged to home. This information is to outline your options for follow-up care. We provide all patients seen in our emergency department with a follow-up referral. The need for follow-up, as well as the timing and circumstances, are variable depending upon the specifics of your emergency department visit. If you don't have a primary care physician on staff, we will provide you with a referral. We always advise you to contact your personal physician following an emergency department visit to inform them of the circumstance of the visit and for follow-up with them and/or the need for any referrals to a consulting specia list. The emergency department will also refer you to a specialist when appropriate. This referral assures that you have the opportunity for follow-up care with a specialist. All of these measure are taken in an effort to provide you with optimal care, which includes your follow-up. Under all circumstances we always encourage you to contact your private physician who remains a resource for coordinating your care. When calling for follow-up care, please make the office aware that this follow-up is from your recent emergency room visit. If for any reason you are refused follow-up, please contact the [facility] Emergency Department at and asked to speak to the emergency department charge nurse. Sepsis Event Note (ED) - Focused Exam Vital Signs: Vital Signs Temp Pulse Resp BP Pulse Ox 01/30/21 20:30 98.4 F 89 18 125/64 97 - My Orders Last 24 Hours: My Active Orders 01/30/21 20:50 CHLAMYDIA AND GONORRHEA BY TMA Stat - Assessment/Plan Last 24 Hours: My Active Orders 01/30/21 20:50 CHLAMYDIA AND GONORRHEA BY TMA Stat Assessment:: 25-year-old female presenting with low abdominal cramping and abnormal vaginal discharge potentially spotting. Pelvic exam is pending CBC BMP to assess blood counts relevant swabs to be taken as well differential includes dysfunctional uterine bleeding, felt less likely, vaginal infection, bleeding from LEEP site which was performed a few months ago. 2010: On pelvic exam patient cervix is closed there is some mild inflammation on it but there is no sign of any active bleeding there is copious thick white discharge that was sampled. GC chlamydia swabs taken as well. I would favor vaginal infection as the cause of her presentation and given the lack of any signs of active bleeding I think we can forego blood analysis at this time. We await swab results. 2250: Trichomoniasis and yeast negative. Plan will be for 7 days of metronidazole. Patient follow-up with gynecology.
[2021-01-30 23:08] VITALS: BP 110/60; PULSE 72
[2021-02-04 10:07] LABS: C.TRACHOMATIS BY TMA Invalid (Negative); N.GONORRHOEAE BY TMA Invalid (Negative)
== END 2021-01-30 23:07 | disposition home or self-care (01) ==
LOC: MW.ED 19:54
DX: N76.0 Acute vaginitis (principal); B96.89 Other specified bacterial agents as the cause of diseases classified elsewhere; K21.9 Gastro-esophageal reflux disease without esophagitis; Z88.0 Allergy status to penicillin; Z79.899 Other long term (current) drug therapy
CPT/HCPCS: 81001; 81025; 87480; 87491; 87510; 87591; 87660; 99284